=== PATIENT | female | born 1990 | race Caucasian/White ===

== ENCOUNTER 2016-05-04 08:34 | Emergency (ER) | payer OTHER ==
--- NOTE | 2016-05-04 09:44 | ED ---
Fall HPI - General Chief Complaint: Fall Stated Complaint: fall Time Seen by Provider: 05/04/16 09:32 Source: patient, RN notes reviewed Mode of arrival: ambulatory - History of Present Illness Initial Comments: 25-year-old female who is currently with last menstrual cycle and the beginning of February presents to the emergency department with chief complaint of fall. Patient states that she was walking down the stairs she tripped her feet when up and she landed on her back in her arms. Patient states she is just having some bilateral diffuse arm pain and some back pain. Patient states she did notice some abdominal pain as well as if she was concerned. Patient states she has not seen her doctor yet in this her follow-up appointment as this coming week. Patient states she hasn't had a vaginal bleeding or discharge. Fall. Patient states her pain is minimal. Patient states does not really hurt to touch just feels sore on her arms and back. Patient states that her abdomen feels more tender in the left lower quadrant since the fall. Patient states that she has not had any other symptoms at this time. Patient states there is no lightheadedness or dizziness before the fall was a simple trip and fall.Patient denies any recent fever, chills, shortness of breath, chest pain, back pain, nausea vomiting, numbness or tingling, dysuria or hematuria, constipation or diarrhea, headaches or visual changes, or any other current symptoms. - Related Data Home Medications Medication Instructions Recorded Confirmed Acetaminophen Tab [Tylenol Tab] 1,000 mg PO Q6HR PRN 05/04/16 05/04/16 Allergies Allergy/AdvReac Type Severity Reaction Status Date / Time sulfamethoxazole Allergy Itching Verified 05/04/16 09:31 [From Bactrim] trimethoprim [From Bactrim] Allergy Itching Verified 05/04/16 09:31 hydrocodone bitartrate AdvReac Unknown Verified 05/04/16 09:31 [From Vicodin] Review of Systems ROS Statement: Those systems with pertinent positive or pertinent negative responses have been documented in the HPI. ROS Other: All systems not noted in ROS Statement are negative. Past Medical History Past Medical History: Asthma Additional Past Medical History / Comment(s): Obstetric history: She has had 2 previous normal vaginal deliveries. This is her third . She has had care with me since 8 weeks gestation. B+ abs neg, Rub Imm, RPR NR, Hrp B neg, HIV NR. Normal 1hr GTT, GBS neg. anemia History of Any Multi-Drug Resistant Organisms: None Reported Past Surgical History: No Surgical Hx Reported Past Anesthesia/Blood Transfusion Reactions: No Reported Reaction Past Psychological History: ADD/ADHD, Depression Smoking Status: Never smoker Past Alcohol Use History: None Reported Past Drug Use History: None Reported General Exam - General Exam Comments Initial Comments: General: The patient is awake and alert, in no distress, and does not appear acutely ill. Eye: Pupils are equal, round and reactive to light, extra-ocular movements are intact; there is normal conjunctiva bilaterally. No signs of icterus. Ears, nose, mouth and throat: There are moist mucous membranes and no oral lesions. Neck: The neck is supple, there is no tenderness. Cardiovascular: There is a regular rate and rhythm. No murmur, rub or gallop is appreciated. Respiratory: Lungs are clear to auscultation, respirations are non-labored, breath sounds are equal. No wheezes, stridor, rales, or rhonchi. Gastrointestinal: Soft, non-distended, mild tenderness in left lower quadrant of the abdomen without masses or organomegaly noted. There is no rebound or guarding present. No CVA tenderness. Bowel sounds are unremarkable. Back: There is no tenderness to palpation in the midline. There is no obvious deformity. No rashes noted. Musculoskeletal: Normal ROM, no tenderness, There is no pedal edema. There is no calf tenderness or swelling. Sensation intact. Pulses equal bilaterally 2+. Neurological: CN II-XII intact, There are no obvious motor or sensory deficits. Coordination appears grossly intact. Speech is normal. Skin: Skin is warm and dry and no rashes or lesions are noted. Psychiatric: Cooperative, appropriate mood & affect, normal judgment. Limitations: no limitations Course Vital Signs 05/04/16 08:51 Temperature 98.7 F Pulse Rate 99 Respiratory 18 Rate Blood Pressure 117/63 O2 Sat by Pulse 98 Oximetry Medical Decision Making - Medical Decision Making 25-year-old female presents to the emergency department with a chief complaint of fall. Patient is currently having some lower abdominal pain. Due to help the patient is in her we'll do an ultrasound to assess the baby's status. This time the patient's ultrasound was reviewed. She was informed that she does have a fluid collection. Chest. Playing with her doctor next week. We discussed follow-up for this. We did discuss at this time patient's fall does appear to cause some contusions to the elbows into the back. We discussed follow-up for this. We discussed Tylenol for pain control. Patient stated that she understood all the questions have been answered. She will be discharged home. - Radiology Data Radiology results: report reviewed, image reviewed Disposition Clinical Impression: Fall, Lumbar strain, Contusion of elbow, left, Contusion of right elbow Disposition: HOME SELF-CARE Condition: Stable Instructions: Contusion in Adults (ED) Additional Instructions: Please use medication as discussed. Please follow up with family doctor if symptoms have not improved over the next two days. Please return to the emergency room if your symptoms increase or worsen or for any other concerns. Follow-up with your [facility]. Referrals: Josie Hussein MD [STAFF PHYSICIAN] - 1-2 days Time of Disposition: 11:17
--- NOTE | 2016-05-04 11:06 | US ---
EXAMINATION TYPE: US OB <= 14 wk fetus DATE OF EXAM: 05/04/2016 10:37 AM COMPARISON: No previous CLINICAL HISTORY: Abdomen pain following fall down stairs, 4, para 3. EXAM PERFORMED: Transabdominal (TA) pelvic ultrasound. EXAM MEASUREMENTS: GESTATIONAL AGE / DATING Physician Established: Not established yet Dates by LMP: (11 weeks/0 days) EDC: 11/23/2016 Dates by First Scan: No previous Dates by Current Scan: (11 weeks/1 days) EDC: 11/22/2016 MATERNAL ANATOMY Uterus: 13.6 x 9.1 x 10.9cm Right Ovary: 2.4 x 1.4 x 1.4cm Left Ovary: 2.4 x 1.3 x 1.1cm Post CDS / Adnexa: wnl Presence of free fluid: no Presence of corpus luteal cyst: not seen at this time Presence of subchorionic bleed: 5.1 x 2.2 x 4.7cm complex cystic area inferior to gestational sac GESTATION / SURVEY CRL: 4.3cm (11 weeks/1 days) Yolk Sac (normal less than 6mm): not seen at this time Heart Rate: 173 bpm Rhythm: Normal IUP: Viable IUP Nuchal Translucency 10-14wks (normal less than 3mm): unable to obtain due to position Date of LMP: 02/17/16 Beta HcG (if available): Not available at time of exam TECHNOLOGIST IMPRESSION: Viable single IUP measuring 11 weeks 1 day with a heart rate of 173bpm and an estimated delivery date of 11/22/2016, 5.1 x 2.2 x 4.7cm complex cystic area inferior to gestation al sac Single live intrauterine gestation is confirmed as a pole and gestational sac are identified. Y olk sac is not clearly seen. heart tones are upper limits of normal. There is moderate to large size fluid collection felt to reflect subchorionic hematoma measured on image #33 along the posterio r aspect of fetus. No free fluid is seen in pelvic cul-de-sac. Both ovaries are identified. No suspicious extraovarian adnexal mass is seen. IMPRESSION: Single live intrauterine gestation is confirmed, mean crown-rump length is 4.3 cm corresponding to 11 week 1 day old fetus. Consider short-term ultrasound follow-up due to moderate to large sized fluid collection probable subchorionic hematoma.
[2016-05-04 11:27] VITALS: BP 101/50; PULSE 69; RESP 14; TEMP 98.4
== END 2016-05-04 11:29 | disposition home or self-care (01) ==
LOC: EC 08:34
DX: O26.891 Other specified pregnancy related conditions, first trimester (principal); S39.012A Strain of muscle, fascia and tendon of lower back, initial encounter; S50.02XA Contusion of left elbow, initial encounter; S50.01XA Contusion of right elbow, initial encounter; R10.32 Left lower quadrant pain; Z88.0 Allergy status to penicillin; Z88.5 Allergy status to narcotic agent; Z3A.11 11 weeks gestation of pregnancy; W18.09XA Striking against other object with subsequent fall, initial encounter
CPT/HCPCS: 76801; 99284

== ENCOUNTER → 2016-05-16 | Outpatient (CLI) | payer OTHER ==
[2016-05-16 18:18] LABS: CH 26.1; HCT 35.2 % (34.0-46.0); HDW 2.52; HGB 11.1 gm/dL (11.4-16.0); MCH 25.9 pg (25.0-35.0); MCHC 31.6 g/dL (31.0-37.0); Mean Platelet Volume 8.7; RDW 13.8 % (11.5-15.5); WBC 8.3 k/uL (3.8-10.6)
[2016-05-16 18:39] LABS: Glucose 69 mg/dL (74-99); Non-African American GFR(MDRD) >60 (>60 ml/min/1.73 sqM)
[2016-05-16 19:11] LABS: Hepatitis B Surface Ag Index 0.07
--- NOTE | 2016-05-17 13:47 | US ---
EXAMINATION TYPE: US OB <= 14 wk fetus DATE OF EXAM: 05/16/2016 5:47 PM COMPARISON: 05/04/2016 CLINICAL HISTORY: F/u Prev Abnormal Z36. Previous abnormal - subchorionic bleed EXAM PERFORMED: Transabdominal (TA) EXAM MEASUREMENTS: GESTATIONAL AGE / DATING Physician Established: (12 weeks/5 days) EDC: 11/23/2016 Dates by LMP: Patient unsure of LMP Dates by First Scan: (12 weeks/6 days) EDC: 11/22/2016 Dates by Current Scan for: (13 weeks/1 days) EDC: 11/20/2016 MATERNAL ANATOMY Uterus: 15.0 x 9.5 x 10.7cm Right Ovary: 3.0 x 2.0 x 1.8cm Left Ovary: 2.8 x 2.0 x 2.2cm Post CDS / Adnexa: wnl Presence of free fluid: no Presence of corpus luteal cyst: not seen at this time Presence of subchorionic bleed: 6.7 x 1.4 x 5.4cm complex area inferior to gestational sac, seen on p revious ultrasound, appears to have increased in size from previous ultrasound . GESTATION / SURVEY CRL: 6.8cm (13 weeks/1 days) Yolk Sac (normal less than 6mm): not seen at this time Heart Rate: 159 bpm Rhythm: Normal IUP: Viable IUP Nuchal Translucency 10-14wks (normal less than 3mm): 1.6mm Date of LMP: Patient unsure of LMP Beta HcG (if available): Not available at time of exam TECHNOLOGIST IMPRESSION: Viable single IUP measuring 13 weeks 1 day with a heart rate of 159bpm and an estimated delivery date of 11/20/2016, 6.7 x 1.4 x 5.4cm complex area inferior to gestational sac, seen on previous ultrasound, appears to have increased in size from previous ultrasound Subchorionic hemorrhage is becoming more echogenic over the interval. This may be maturing. IMPRESSION: 1. Increasing size subchorionic hemorrhage currently measuring 6.7 x 1.4 x 5.4 cm. 2. Single intrauterine gestation estimated at 13 weeks 1 day gestation. Cardiac activity measures 159 bpm.
[2016-05-18 07:05] LABS: HIV-1/HIV-2 Ab Screen NONREAC (NON REAC)
== END | disposition home or self-care (01) ==
LOC: RADUSMAIN 17:25
PROVIDERS: ATTEND Obstetrics & Gynecology
DX: O46.8X1 Other antepartum hemorrhage, first trimester (principal); Z3A.13 13 weeks gestation of pregnancy
CPT/HCPCS: 76801; 76813; 82565; 82947; 85027; 86762; 86780; 86850; 86900; 86901; 87340; 87389

== ENCOUNTER 2016-06-04 17:28 | Emergency (ER) | payer OTHER ==
[2016-06-04 17:39] VITALS: TEMP 98.6
[2016-06-04] MEDS ORDERED: SODIUM CHLORIDE 0.9% 500 ML IV STA (18:12)
[2016-06-04] MEDS ORDERED: SODIUM CHLORIDE 0.9% 1,000 ML IV STA (18:12)
[2016-06-04] MEDS ORDERED: ACETAMINOPHEN IV (For NPO) 500 MG in EMPTY BAG 1 BAG IVPB ONE (18:12)
[2016-06-04] MEDS ORDERED: ONDANSETRON 4 MG/2 ML VIAL IVP STA (18:12)
--- NOTE | 2016-06-04 18:21 | ED ---
General Adult HPI - General Chief complaint: Headache Stated complaint: HEADACHE, COUGHING X 2 WEEKS 15 WEEKS Time Seen by Provider: 06/04/16 17:41 Source: patient, family, RN notes reviewed, old records reviewed Mode of arrival: ambulatory Limitations: no limitations - History of Present Illness Initial comments: Chief complaint history of present illness a 25-year-old female who is approximately 15 weeks . States she had a cough cough hard enough to cause vomiting. She has chronic migraine headaches. Complains of headache. No blood in the vomit no diarrhea. No fever. No stiff neck. - Related Data Home Medications Medication Instructions Recorded Confirmed Acetaminophen Tab [Tylenol Tab] 1,000 mg PO Q6HR PRN 05/04/16 05/04/16 Previous Rx's Medication Instructions Recorded Metoclopramide HCl [Reglan] 5 mg PO TID PRN #10 tablet 06/04/16 Allergies Allergy/AdvReac Type Severity Reaction Status Date / Time sulfamethoxazole Allergy Itching Verified 06/04/16 17:36 [From Bactrim] trimethoprim [From Bactrim] Allergy Itching Verified 06/04/16 17:36 hydrocodone bitartrate AdvReac Unknown Verified 06/04/16 17:36 [From Vicodin] Review of Systems ROS Statement: Those systems with pertinent positive or pertinent negative responses have been documented in the HPI. Review of systems. Patient has a headache does not appear to be uncomfortable. Reports when she coughs is green in color. Denies any visual acuity changes denies sore throat no chest pain denies shortness of breath and coughing causes to vomit several times. The patient is 15 weeks she sees an [employer]. All systems otherwise reviewed. Past medical problems significant for 4 para 3. Recently the patient had an ultrasound, 18 days ago which at that time and was done because she slipped and fell down her stairs. The ultrasound at that time was increasing size subchorionic hemorrhage currently measuring 6.7 x 1.4 x 5.4 cm. At that time she had a single intrauterine gestation estimated 13 weeks 1 day cardiac activity was 159. That was read by Dr. Jesus Manuel cassidy. Since that time patient has not had any cramps pain or bleeding. Past medical processing significant for asthma. Surgeries none. Family history mother cervical cancer great aunt had breast cancer. Patient has ALLERGIES to sulfa and hydrocodone. Nonsmoker nondrinker. ROS Other: All systems not noted in ROS Statement are negative. Past Medical History Past Medical History: Asthma Additional Past Medical History / Comment(s): Obstetric history: She has had 2 previous normal vaginal deliveries. This is her third . She has had care with me since 8 weeks gestation. B+ abs neg, Rub Imm, RPR NR, Hrp B neg, HIV NR. Normal 1hr GTT, GBS neg. anemia History of Any Multi-Drug Resistant Organisms: None Reported Past Surgical History: No Surgical Hx Reported Past Anesthesia/Blood Transfusion Reactions: No Reported Reaction Past Psychological History: ADD/ADHD, Depression Smoking Status: Never smoker Past Alcohol Use History: None Reported Past Drug Use History: None Reported General Exam - General Exam Comments Initial Comments: General: The patient is awake and alert, in no distress, and does not appear acutely ill. Here because she has a headache, complains of chronic migraine type headaches. She has not taken Tylenol for it at home. Also coughing and vomiting several times. Vital signs show temperature 98.6 pulse 133 respiratory rate 20 Eye: Pupils are equal, round and reactive to light, extra-ocular movements are intact ; there is normal conjunctiva bilaterally. No signs of icterus. Ears, nose, mouth and throat: There are moist mucous membranes and no oral lesions. Neck: The neck is supple, there is no tenderness , no anterior cervical lymphadenopathy, no stiff neck. Cardiovascular: Tachycardic heart rate, 133.. No murmur, rub or gallop is appreciated. Respiratory: Lungs are clear to auscultation, respirations are non-labored, breath sounds are equal. No wheezes, stridor, rales, or rhonchi. Gastrointestinal: Soft, non-distended, non-tender abdomen without masses or organomegaly noted. There is no rebound or guarding present. No CVA tenderness. Bowel sounds are unremarkable. Patient is 15 weeks . Back: There is no tenderness to palpation in the midline. There is no obvious deformity. No rashes noted. Musculoskeletal: Normal ROM, no tenderness, There is no pedal edema. There is no calf tenderness or swelling. Sensation intact. Pulses equal bilaterally 2+. Neurological: No neuro deficits. No meningismus. Skin: Skin is warm and dry and no rashes or lesions are noted. Limitations: no limitations Course Vital Signs 06/04/16 17:36 Temperature 98.6 F Pulse Rate 133 H Respiratory 20 Rate Blood Pressure 98/68 O2 Sat by Pulse 97 Oximetry Medical Decision Making - Medical Decision Making Patient asked for food. Feeling better no nausea no vomiting this time. Headache gone. Labs show white count of 5.8 hemoglobin 10 hematocrit 32 with a potassium 4.2 BUN 61 creatinine 0.6 with a GFR greater than 60. Lab determined glucose only 63. Patient did eat is feeling better. Patient is not taking any hypoglycemics does not have history of problems with blood sugar. The patient be discharged home with Reglan to be taken by mouth as needed for nausea vomiting. She's to call follow-up with family physician and [facility] or return emergency room as needed - Lab Data Result diagrams: 06/04/16 18:40 06/04/16 18:40 Lab Results 06/04/16 06/04/16 Range/Units 18:40 18:40 WBC 5.8 (3.8-10.6) k/uL RBC 4.03 (3.80-5.40) m/uL Hgb 10.4 L (11.4-16.0) gm/dL Hct 32.5 L (34.0-46.0) % MCV 80.6 (80.0-100.0) fL MCH 25.9 (25.0-35.0) pg MCHC 32.2 (31.0-37.0) g/dL RDW 13.9 (11.5-15.5) % Plt Count 145 L (150-450) k/uL Neutrophils % 80 % Lymphocytes % 8 % Monocytes % 7 % Eosinophils % 3 % Basophils % 1 % Neutrophils # 4.6 (1.3-7.7) k/uL Lymphocytes # 0.5 L (1.0-4.8) k/uL Monocytes # 0.4 (0-1.0) k/uL Eosinophils # 0.2 (0-0.7) k/uL Basophils # 0.0 (0-0.2) k/uL Sodium 135 L (137-145) mmol/L Potassium 4.2 (3.5-5.1) mmol/L Chloride 104 (98-107) mmol/L Carbon Dioxide 22 (22-30) mmol/L Anion Gap 9 mmol/L BUN 6 L (7-17) mg/dL Creatinine 0.60 (0.52-1.04) mg/dL Est GFR (MDRD) Af Amer >60 (>60 ml/min/1.73 sqM) Est GFR (MDRD) Non-Af >60 (>60 ml/min/1.73 sqM) Glucose 63 L (74-99) mg/dL Calcium 9.0 (8.4-10.2) mg/dL Total Bilirubin 0.3 (0.2-1.3) mg/dL AST 23 (14-36) U/L ALT 28 (9-52) U/L Alkaline Phosphatase 56 (38-126) U/L Total Protein 6.6 (6.3-8.2) g/dL Albumin 3.4 L (3.5-5.0) g/dL Disposition Clinical Impression: Nausea/vomiting in Disposition: HOME SELF-CARE Condition: Fair Instructions: Nausea and Vomiting in (ED) Additional Instructions: Follow-up with year old family physician follow-up [facility]. Take Reglan for nausea vomiting, for pain Prescriptions: Metoclopramide HCl [Reglan] 5 mg PO TID PRN #10 tablet PRN Reason: When necessary nausea vomiting Time of Disposition: 20:25
[2016-06-04 18:56] LABS: Basophils % (A) 1 %; CH 26.7; CHCM 33.4; Eosinophils # (A) 0.2 k/uL (0-0.7); Eosinophils % (A) 3 %; HCT 32.5 % (34.0-46.0); HDW 3.03; HGB 10.4 gm/dL (11.4-16.0); Luc # (Auto) 0.11; Luc % (Auto) 2; Lymphocytes # (A) 0.5 k/uL (1.0-4.8); Lymphocytes % (A) 8 %; MCH 25.9 pg (25.0-35.0); MCHC 32.2 g/dL (31.0-37.0); MCV 80.6 fL (80.0-100.0); Mean Platelet Volume 8.5; Monocytes # (A) 0.4 k/uL (0-1.0); Monocytes % (A) 7 %; Neutrophils # (A) 4.6 k/uL (1.3-7.7); Neutrophils % (A) 80 %; RBC 4.03 m/uL (3.80-5.40); RDW 13.9 % (11.5-15.5); WBC 5.8 k/uL (3.8-10.6); WBC (Perox) 5.66
[2016-06-04 19:04] LABS: ALT 28 U/L (9-52); AST 23 U/L (14-36); Alkaline Phosphatase 56 U/L (38-126); Anion Gap 9 mmol/L; Blood Urea Nitrogen 6 mg/dL (7-17); Carbon Dioxide 22 mmol/L (22-30); Chloride 104 mmol/L (98-107); Glucose 63 mg/dL (74-99); Non-African American GFR(MDRD) >60 (>60 ml/min/1.73 sqM); Potassium 4.2 mmol/L (3.5-5.1); Sodium 135 mmol/L (137-145); Total Bilirubin 0.3 mg/dL (0.2-1.3); Total Protein 6.6 g/dL (6.3-8.2)
[2016-06-04 20:39] VITALS: BP 101/56; PULSE 77; RESP 18
== END 2016-06-04 20:43 | disposition home or self-care (01) ==
LOC: EC 17:28
DX: O26.892 Other specified pregnancy related conditions, second trimester (principal); R51 Headache; R05 Cough; R11.2 Nausea with vomiting, unspecified; Z88.1 Allergy status to other antibiotic agents; Z88.2 Allergy status to sulfonamides; Z88.6 Allergy status to analgesic agent; Z3A.15 15 weeks gestation of pregnancy; Z80.3 Family history of malignant neoplasm of breast; Z80.49 Family history of malignant neoplasm of other genital organs
CPT/HCPCS: 36415; 80053; 85025; 99284; 96374; 96375; 96361 ×2; J2405; J0131

== ENCOUNTER → 2016-06-21 | Outpatient (CLI) | payer OTHER | END | disposition home or self-care (01) | LOC: LABWHC1 13:44 | PROVIDERS: ATTEND Obstetrics & Gynecology | DX: Z34.82 Encounter for supervision of other normal pregnancy, second trimester (principal); Z3A.00 Weeks of gestation of pregnancy not specified | CPT/HCPCS: 36415; 82105; 82677; 84702; 86336 ==

== ENCOUNTER 2016-06-25 21:37 | Emergency (ER) | payer OTHER ==
[2016-06-25 21:42] VITALS: BP 103/58; PULSE 80; RESP 16; TEMP 98.4
[2016-06-25 23:42] LABS: Appearance,Urine Clear (Clear); Bacteria,Urine Rare /hpf; Bilirubin,Urine Negative (Negative); Glucose,Urine (UA) Negative (Negative); Ketones,Urine Negative (Negative); Leukocyte Esterase,Urine Large (Negative); Nitrite,Urine Negative (Negative); Particle Count 3189; Protein,Urine Trace (Negative); RBC,Urine 1 /hpf (0-5); Specific Gravity,Urine 1.015 (1.001-1.035); Squamous Epithelial Cell,Urine 7 /hpf (0-4); UA Billing (MACRO vs. MICRO) MICRO; Urobilinogen,Urine <2.0 mg/dL (<2.0); WBC,Urine 26 /hpf (0-5)
--- NOTE | 2016-06-26 00:07 | ED ---
Abdominal Pain HPI - General Chief Complaint: Abdominal Pain Stated Complaint: abdominal pain; blood in eye Time Seen by Provider: 06/25/16 22:19 Source: patient Mode of arrival: ambulatory Limitations: no limitations - History of Present Illness Initial Comments: Patient is a 29-year-old female at 18 weeks presenting with diffuse abdominal pain and right eye subconjunctival hemorrhage. Patient states pain has been been going on for the past week and diffuse in nature. Patient's been trying Tylenol without relief. Patient denies fever, nausea, vomiting, diarrhea , dysuria. Patient denies vaginal bleeding or discharge. Patient states 2 days ago she noticed her right eye had a subconjunctival hemorrhage. Patient denies concern now or in the past for STDs. Patient states she was recently checked and negative for STDs. Patient not concerned about significant other and possibility of STDs with him. - Related Data Previous Rx's Medication Instructions Recorded Nitrofurantoin Monohyd/M-Cryst 100 mg PO Q12HR #14 cap 06/26/16 [Macrobid] Allergies Allergy/AdvReac Type Severity Reaction Status Date / Time sulfamethoxazole Allergy Itching Verified 06/25/16 21:42 [From Bactrim] trimethoprim [From Bactrim] Allergy Itching Verified 06/25/16 21:42 hydrocodone bitartrate AdvReac Unknown Verified 06/25/16 21:42 [From Vicodin] Review of Systems ROS Statement: Those systems with pertinent positive or pertinent negative responses have been documented in the HPI. Constitutional: No fever and no chills. HENT: No congestion, no rhinorrhea and no sore throat. Eyes: No discharge and no redness. Respiratory: No cough and no shortness of breath. Cardiovascular: No chest pain and no palpitations. Gastrointestinal: No nausea, no vomiting, +abdominal pain and no diarrhea. Genitourinary: No dysuria and no hematuria. No vaginal bleeding or discharge. Musculoskeletal: No back pain and no arthralgias. Skin: No pallor and no rash. Neurological: No dizziness and No headaches. ROS Other: All systems not noted in ROS Statement are negative. Past Medical History Past Medical History: Asthma Additional Past Medical History / Comment(s): Obstetric history: She has had 2 previous normal vaginal deliveries. This is her third . She has had care with me since 8 weeks gestation. B+ abs neg, Rub Imm, RPR NR, Hrp B neg, HIV NR. Normal 1hr GTT, GBS neg. anemia History of Any Multi-Drug Resistant Organisms: None Reported Past Surgical History: No Surgical Hx Reported Past Anesthesia/Blood Transfusion Reactions: No Reported Reaction Past Psychological History: ADD/ADHD, Depression Smoking Status: Never smoker Past Alcohol Use History: None Reported Past Drug Use History: None Reported General Exam - General Exam Comments Initial Comments: Constitutional: Patient appears well-developed and well-nourished. No distress. Head: Normocephalic and atraumatic. Eyes: Conjunctivae and EOM are normal. Right eye exhibits no discharge. Left eye exhibits no discharge. No scleral icterus. Neck: Normal range of motion. Neck supple. Cardiovascular: Normal rate and regular rhythm. No murmur heard. Pulmonary/Chest: Effort normal and breath sounds normal. No respiratory distress. No wheezes. Abdominal: Soft. No distension. There is no tenderness. There is no rebound and no guarding. Musculoskeletal: Normal range of motion. No edema or tenderness. Neurological: Patient alert and oriented to person, place, and time. Skin: Skin is warm and dry. Not diaphoretic. Nursing notes and vitals reviewed. Genitourinary: Patient refusing pelvic examination as she states she is on pelvic rest. Educated patient on risk, benefits and alternatives. RN present and patient refusing pelvic exam. Limitations: no limitations Course Vital Signs 06/25/16 21:40 Temperature 98.4 F Pulse Rate 80 Respiratory 16 Rate Blood Pressure 103/58 O2 Sat by Pulse 99 Oximetry - Reevaluation(s) Reevaluation #1: 06/26/16 00:07 OB nurse came down and got heart tones in the 150s. Medical Decision Making - Medical Decision Making Patient's a 25-year-old at 18 weeks presenting with diffuse abdominal pain found to have a urinary tract infection. Abdomen soft and nonspecific tenderness including no tenderness in the right lower quadrant. Ultrasound done 05/16/2016 showing a single IUP with subchorionic hemorrhage. Patient refusing pelvic exam to address further concerns of possible PID, gonorrhea or chlamydia. Prior to discharge, patient was resting comfortably in bed. Course of stay improved. Abdomen soft nontender. Denies pain. Discussed physical exam and diagnostic tests with patient. Questions answered and patient is agreeable to discharge with close follow up with Primary Care Physician. Instructed to return to Emergency Department if symptoms worsen. - Lab Data Lab Results 06/25/16 Range/Units 23:00 Urine Color Yellow Urine Appearance Clear (Clear) Urine pH 8.0 (5.0-8.0) Ur Specific [place] 1.015 (1.001-1.035) Urine Protein Trace H (Negative) Urine Glucose (UA) Negative (Negative) Urine Ketones Negative (Negative) Urine Blood Negative (Negative) Urine Nitrate Negative (Negative) Urine Bilirubin Negative (Negative) Urine Urobilinogen <2.0 (<2.0) mg/dL Ur Leukocyte Esterase Large H (Negative) Urine RBC 1 (0-5) /hpf Urine WBC 26 H (0-5) /hpf Urine WBC Clumps Rare H (None) /hpf Ur Squamous Epith Cells 7 H (0-4) /hpf Urine Bacteria Rare H (None) /hpf Disposition Clinical Impression: Subconjunctival hemorrhage of right eye, Abdominal pain during , Urinary tract infection during Disposition: HOME SELF-CARE Condition: Good Instructions: Abdominal Pain in (ED), Subconjunctival Hemorrhage (ED ), Urinary Tract Infection in (ED) Prescriptions: Nitrofurantoin Monohyd/M-Cryst [Macrobid] 100 mg PO Q12HR #14 cap Referrals: None,Stated [Primary Care Provider] - 1-2 days Liane Nieves DO [Doctor of Osteopathic Medicine] - 1-2 days
== END 2016-06-26 01:01 | disposition home or self-care (01) ==
LOC: EC 21:37
DX: O23.42 Unspecified infection of urinary tract in pregnancy, second trimester (principal); H11.31 Conjunctival hemorrhage, right eye; Z3A.18 18 weeks gestation of pregnancy; Z88.2 Allergy status to sulfonamides; Z88.5 Allergy status to narcotic agent
CPT/HCPCS: 81001; 87086; 99284

== ENCOUNTER → 2016-06-28 | Outpatient (CLI) | payer OTHER ==
--- NOTE | 2016-06-29 07:32 | US ---
EXAMINATION TYPE: US OB anatomy transabd DATE OF EXAM: 06/28/2016 2:27 PM COMPARISON: 05/16/2016 HISTORY: Anatomy TECHNIQUE: Transabdominal (TA) EXAM MEASUREMENTS: GESTATIONAL AGE / DATING Physician Established: (18 weeks/6 days) EDC: 02/16/2017 Dates by Current Scan for: (18 weeks/6 days) EDC: 02/16/2017 SURVEY IUP: Single PLACENTA: Posterior PREVIA: No previa WILMER: 10.8 cm Normal CERVICAL LENGTH (transabdominal: norm > 3.0cm): 3.3 cm BIOMETRY PRESENTATION: Vertex LIE: Longitudinal BPD: 4.5 cm 19 weeks / 5 days HC: 16.5 cm 19 weeks / 2 days AC: 12.9 cm 18 weeks / 4 days FL: 2.5 cm 17 weeks / 4 days ESTIMATED WEIGHT IN GRAMS: 228 grams ESTIMATED WEIGHT IN LBS/OZS: 0 lbs. 8 oz. WEIGHT PERCENTAGE BASED ON ESTABLISHED DATE: 14 % HC/AC: Normal FL/AC: Normal HEART RATE: 153 bpm RHYTHM: Normal ANATOMY SEEN (within normal limits): * Lateral Vent (< 1 cm) 0.7 cm * Cisterna Magna (< 1.1 cm) 0.5 cm * Nuchal Fold (< 0.6 cm) 0.3 cm * Cerebellum (varies with age) 1.8 cm Choroid Plexus (bilateral) Midline Falx Cavus Septi Pellucidi Four Chamber Heart Outflow tracts: LVOT/RVOT Stomach Situs Nose / Lips Diaphragm Kidneys (bilateral) Bladder Cord Insert Three Vessel Cord Longitudinal Spine Transverse Spine Arms (bilateral) Legs (bilateral) ANATOMY SEEN (does not appear within normal limits): ANATOMY NOT SEEN: IMPRESSION: 1. Viable IUP measuring 18 weeks 6 days. Previous subchorionic hemorrhage not seen. [place] .
== END | disposition home or self-care (01) ==
LOC: RADUSWWP 13:36
PROVIDERS: ATTEND Obstetrics & Gynecology
DX: O36.62X0 Maternal care for excessive fetal growth, second trimester, not applicable or unspecified (principal); Z88.8 Allergy status to other drugs, medicaments and biological substances; Z3A.18 18 weeks gestation of pregnancy
CPT/HCPCS: 76811

== ENCOUNTER → 2016-08-22 | Outpatient (CLI) | payer OTHER ==
[2016-08-22 17:06] LABS: CH 22.8; CHCM 29.3; HDW 3.51; HGB 8.3 gm/dL (11.4-16.0); Hypochromasia Marked; MCH 23.2 pg (25.0-35.0); MCHC 29.8 g/dL (31.0-37.0); MCV 78.1 fL (80.0-100.0); Mean Platelet Volume 8.6; Poikilocytosis Slight; RBC 3.59 m/uL (3.80-5.40); RDW 14.3 % (11.5-15.5); WBC 7.2 k/uL (3.8-10.6)
== END | disposition home or self-care (01) ==
LOC: LABWHC1 15:38
PROVIDERS: ATTEND Obstetrics & Gynecology
DX: Z34.92 Encounter for supervision of normal pregnancy, unspecified, second trimester (principal); Z3A.00 Weeks of gestation of pregnancy not specified
CPT/HCPCS: 36415; 82950; 85027

== ENCOUNTER → 2016-09-06 | Outpatient (CLI) | payer OTHER | END | disposition home or self-care (01) | LOC: LABWHC1 07:39 | PROVIDERS: ATTEND Obstetrics & Gynecology | DX: O24.419 Gestational diabetes mellitus in pregnancy, unspecified control (principal); Z3A.00 Weeks of gestation of pregnancy not specified | CPT/HCPCS: 36415; 82947; 82951; 82952 ==

== ENCOUNTER → 2016-09-15 | Outpatient (CLI) | payer OTHER ==
[2016-09-15 11:38] LABS: Glucose 3 Hour, Gest 140 mg/dL
== END | disposition home or self-care (01) ==
LOC: LABWHC1 07:08
PROVIDERS: ATTEND Obstetrics & Gynecology
DX: O24.419 Gestational diabetes mellitus in pregnancy, unspecified control (principal); Z3A.00 Weeks of gestation of pregnancy not specified
CPT/HCPCS: 36415; 82951; 82952

== ENCOUNTER 2016-11-05 11:33 | Inpatient (IN) | payer OTHER ==
[2016-11-05] MEDS ORDERED: TERBUTALINE 1 MG/ML VIAL SQ PRN (12:04)
[2016-11-05] MEDS ORDERED: METHYLERGONOVINE 0.2 MG/ML 1 ML AMP IM PRN (12:04)
[2016-11-05] MEDS ORDERED: OXYTOCIN 10 UNIT/ML 1 ML VIAL IM PRN (12:04)
[2016-11-05] MEDS ORDERED: AMPICILLIN 2,000 MG in SODIUM CHLORIDE 0.9% 100 ML IVPB STA (12:04)
[2016-11-05] MEDS ORDERED: LIDOCAINE 1% (PF) 10 MG/ML (30 ML SDV) SQ PRN (12:04)
[2016-11-05] MEDS ORDERED: CARBOPROST TROMETHAMINE 250 MCG/ML 1 ML AMP IM PRN (12:04)
[2016-11-05] MEDS ORDERED: LACTATED RINGERS 1,000 ML IV SCH (12:15)
[2016-11-05] MEDS ORDERED: BUTORPHANOL 1 MG/ML 1 ML VIAL IV PRN (12:43)
--- NOTE | 2016-11-05 12:50 | P.HPOB ---
History of Present Illness H&P Date: 11/05/16 Chief Complaint: Contractions. This patient is a 26-year-old 4 para 3 female estimated date of confinement 11/23/2016 estimated gestational age 37-3/7 weeks gestation who is admitted to labor and delivery for complaints of contraction. Patient's care is per Dr. Nieves appears to be complicated by gestational diabetes. She has been followed by maternal medicine but patient has had some issues getting there due to transportation. Patient's had a positive group B strep culture. Review of Systems Constitutional: Denies chills, Denies fever Ears, nose, mouth and throat: Denies headache, Denies sore throat Cardiovascular: Denies chest pain, Denies shortness of breath Respiratory: Denies cough Gastrointestinal: Reports heartburn Genitourinary: Reports Menstruation: Reports amenorrhea Musculoskeletal: Denies myalgias Past Medical History Past Medical History: Asthma Additional Past Medical History / Comment(s): 3 previous vaginal deliveries. History of Any Multi-Drug Resistant Organisms: None Reported Past Surgical History: No Surgical Hx Reported Past Anesthesia/Blood Transfusion Reactions: No Reported Reaction Past Psychological History: ADD/ADHD, Depression Smoking Status: Never smoker Past Alcohol Use History: None Reported Past Drug Use History: None Reported Medications and Allergies Home Medications Medication Instructions Recorded Confirmed Type Acetaminophen [Tylenol] 325 mg PO Q4H 11/05/16 11/05/16 History Albuterol Inhaler [Ventolin Hfa 1 - 2 puff INHALATION Q6HR PRN 11/05/16 History Inhaler] Allergies Allergy/AdvReac Type Severity Reaction Status Date / Time sulfamethoxazole Allergy Itching Verified 06/25/16 21:42 [From Bactrim] trimethoprim [From Bactrim] Allergy Itching Verified 06/25/16 21:42 hydrocodone bitartrate AdvReac Unknown Verified 06/25/16 21:42 [From Vicodin] Exam - Vital Signs Vital signs: Intake and Output 11/04/16 11/05/16 11/05/16 22:59 06:59 14:59 Other: Weight 53.07 kg Patient Weight 11/06/16 06:59 Weight 53.07 kg - OBG Physical Exam Abdomen: bowel sounds normal, no diffuse tenderness, no bruit present, no guarding noted, no hepatomegaly, no splenomegaly, no mass Vulva: both: normal Vagina: normal moisture, no discharge Cervix: no lesion (Patient is 8 cm dilated completely effaced -2 station), no discharge Uterus: enlarged (Fundal height consistent with a term ) Results blood work shows she is B positive, rubella immune, RPR nonreactive, hepatitis B negative, group B strep was normal. Assessment and Plan (1) Normal labor Narrative/Plan: This patient is a 26-year-old 4 para 3 female 37-3/7 weeks' gestation in active labor. Patient is a positive group B strep culture therefore will treat prophylactically with antibiotics. Patient apparently has a history of a custody issues with previous children and therefore will have a social service agency director consult. Status: Acute (2) Gestational diabetes Status: Acute (3) Group B streptococcal carriage complicating Status: Acute
[2016-11-05 13:33] LABS: Anisocytosis Slight; Basophils % (A) 0 %; CH 18.8; CHCM 27.7; Eosinophils # (A) 0.2 k/uL (0-0.7); Eosinophils % (A) 2 %; HCT 27.3 % (34.0-46.0); HDW 3.93; HGB 7.6 gm/dL (11.4-16.0); Hypochromasia Marked; Luc # (Auto) 0.12; Luc % (Auto) 2; Lymphocytes # (A) 1.5 k/uL (1.0-4.8); Lymphocytes % (A) 21 %; MCH 19.1 pg (25.0-35.0); MCV 68.1 fL (80.0-100.0); Mean Platelet Volume 8.2; Microcytosis Marked; Monocytes # (A) 0.3 k/uL (0-1.0); Monocytes % (A) 5 %; Neutrophils # (A) 5.2 k/uL (1.3-7.7); Neutrophils % (A) 71 %; Poikilocytosis Slight; RBC 4.01 m/uL (3.80-5.40); RDW 17.2 % (11.5-15.5); WBC 7.3 k/uL (3.8-10.6); WBC (Perox) 7.65
[2016-11-05] MEDS ORDERED: LANOLIN CREAM 5 GM TUBE TOPICAL PRN (14:00)
[2016-11-05] MEDS ORDERED: diphenhydrAMINE 50 MG/ML 1 ML VIAL IVP PRN (14:00)
[2016-11-05] MEDS ORDERED: OXYTOCIN 20 UNITS/1000 ML NS 1,000 ML IV SCH (14:00)
[2016-11-05] MEDS ORDERED: WITCH HAZEL 1 EACH MED..PAD TOPICAL PRN (14:00)
[2016-11-05] MEDS ORDERED: BENZOCAINE/MENTHOL SPRAY 1 GM/SPRAY AEROSOL TOPICAL PRN (14:00)
[2016-11-05] MEDS ORDERED: ZOLPIDEM 5 MG TAB PO PRN (14:00)
[2016-11-05] MEDS ORDERED: ACETAMINOPHEN TAB 325 MG TAB PO PRN (14:00)
[2016-11-05] MEDS ORDERED: HYDROCORTISONE 2.5% RECTAL CREAM 30 GM TUBE RECTAL PRN (14:00)
[2016-11-05] MEDS ORDERED: diphenhydrAMINE 25 MG CAP PO PRN (14:00)
[2016-11-05] MEDS ORDERED: SIMETHICONE 80 MG CHEWABLE PO PRN (14:00)
[2016-11-05] MEDS ORDERED: BISACODYL 10 MG SUPP RECTAL PRN (14:00)
[2016-11-05] MEDS: Acetaminophen-Codeine 300-30mg TAB PO PRN ×2 (14:10→23:44)
--- NOTE | 2016-11-05 14:15 | P.PROBDLV ---
Vaginal Delivery Note - . Vaginal Delivery Note: Normal spontaneous vaginal delivery viable male infant Apgars 8 and 9 delivery time is 1324 hrs. Please see dictated H&P for intimate details of this patient's admission. In summary this is a 26-year-old 4 para 3 female 37-3/7 weeks gestation who is admitted to labor and delivery with active labor. Patient has artificial rupture membranes at 8 cm dilated for clear fluid. She does receive 1 dose of intrapartum Stadol for pain control. Patient's labor progresses very quickly and she gets to complete. Patient pushes the head to the perineum and the posterior perineum was supported. Patient unfortunately continues to push and delivers the anterior and posterior shoulder and rest this infant's body uncontrollably. She has a double nuchal cord which is then reduced. He umbilical cord was then doubly clamped and cut laid on the mother' s abdomen. This is a viable male infant Apgars 8 and 9 delivery time was 1324 hrs. The placenta is then spontaneously delivered intact. Inspection of the perineum shows a first-degree perineal laceration. Patient is known have atony at this time and uterine massage shows a large gush of blood and estimated blood loss is approximately 400 mL. She does firm up with IV Pitocin. The first-degree laceration is then repaired with 3-0 Vicryl usual fashion in good reapproximation is noted. and mother are stable in delivery room. There are no complications. All counts are correct 3. Of note the patient's admission hemoglobin is found to be 7.6. I discussed this with the patient she says that she has been anemic "since 2010". She states that she has not been taking any iron. At this point the patient's vital signs are stable and her bleeding is normal however she did have a significant blood loss at the time of delivery. For this reason I'll give her Methergine for at least 12 or 24 hours and begin chromogen. Patient understands that if her CBC shows her to be severely anemic or symptomatic then I would proceed with blood transfusion.
[2016-11-05] MEDS: METHYLERGONOVINE 0.2 MG TAB PO SCH ×2 (15:05→21:51)
[2016-11-05] MEDS: IRON AG/C/B12/CA/SUC.ACID/STOM 1 EACH TAB PO SCH (15:05)
[2016-11-05] MEDS ORDERED: AMPICILLIN 1,000 MG in SODIUM CHLORIDE 0.9% 50 ML IVPB SCH (17:00)
[2016-11-05] MEDS: SENNOSIDES-DOCUSATE SODIUM 1 EACH TAB PO SCH ×2 (19:48→20:00)
[2016-11-05] MEDS: IBUPROFEN 600 MG TAB PO PRN (21:53)
[2016-11-06] MEDS: IBUPROFEN 600 MG TAB PO PRN ×3 (03:54→23:01)
[2016-11-06 05:54] LABS: Anisocytosis Slight; Basophils % (A) 0 %; CH 18.9; CHCM 27.6; Eosinophils # (A) 0.1 k/uL (0-0.7); Eosinophils % (A) 0 %; HCT 25.4 % (34.0-46.0); HDW 3.83; HGB 7.1 gm/dL (11.4-16.0); Hypochromasia Marked; Luc # (Auto) 0.16; Luc % (Auto) 1; Lymphocytes # (A) 1.7 k/uL (1.0-4.8); Lymphocytes % (A) 13 %; MCH 19.1 pg (25.0-35.0); MCHC 27.9 g/dL (31.0-37.0); MCV 68.6 fL (80.0-100.0); Mean Platelet Volume 8.8; Microcytosis Marked; Monocytes # (A) 0.5 k/uL (0-1.0); Monocytes % (A) 4 %; Neutrophils # (A) 10.7 k/uL (1.3-7.7); Neutrophils % (A) 82 %; Poikilocytosis Slight; RBC 3.71 m/uL (3.80-5.40); RDW 17.2 % (11.5-15.5); WBC 13.1 k/uL (3.8-10.6); WBC (Perox) 13.12
--- NOTE | 2016-11-06 06:48 | P.PNOBGVD ---
Subjective - Subjective Patient reports: Reports appetite normal, Reports voiding normally, Reports pain well controlled, Reports ambulating normally : doing well Objective - Latest Vital Signs Latest vital signs: Vital Signs Temp Pulse Resp BP Pulse Ox 11/06/16 03:57 97.6 F 63 16 102/71 11/05/16 23:47 98.1 F 46 L 16 93/61 100 11/05/16 19:40 98.3 F 53 L 16 122/65 98 11/05/16 15:50 60 18 107/63 11/05/16 15:20 57 L 18 108/66 11/05/16 14:50 60 18 108/68 11/05/16 14:35 62 18 108/68 11/05/16 14:20 56 L 20 97/64 11/05/16 14:05 84 18 103/63 11/05/16 13:50 97.9 F 57 L 20 120/59 Intake and Output 11/05/16 11/05/16 11/06/16 14:59 22:59 06:59 Intake Total 1000 Balance 1000 Intake: IV 1000 Lactated Ringers 1,000 ml 1000 @ 125 mls/hr IV .Q8H [facility] Rx#:[id number] Other: # Voids 1 1 Weight 53.07 kg Patient Weight 11/06/16 06:59 Weight 53.07 kg - Exam Lungs: bilateral: normal Chest: Normal S1, Normal S2 Extremities: Present: normal Abdomen: Present: normal appearance, soft Uterus: Present: normal, firm - Labs Labs: Abnormal Lab Results - Last 24 Hours (Table) 11/05/16 11/06/16 Range/Units 12:25 05:33 WBC 13.1 H (3.8-10.6) k/uL RBC 3.71 L (3.80-5.40) m/uL Hgb 7.6 L 7.1 L (11.4-16.0) gm/dL Hct 27.3 L 25.4 L (34.0-46.0) % MCV 68.1 L 68.6 L (80.0-100.0) fL MCH 19.1 L 19.1 L (25.0-35.0) pg MCHC 28.0 L 27.9 L (31.0-37.0) g/dL RDW 17.2 H 17.2 H (11.5-15.5) % Plt Count 124 L 135 L (150-450) k/uL Neutrophils # 10.7 H (1.3-7.7) k/uL Assessment and Plan (1) Normal labor Narrative/Plan: day #1. Patient is resting without new complaints. Hemoglobin on admission was 7.6 and repeat this morning is 7.1. Patient is on Chromagen and for the most part asymptomatic. Vital signs are stable and she is afebrile. My impression this is a normal course with chronic anemia. Plan is to continue routine postoperative care and will be discharged home tomorrow. Current Visit: Yes Status: Acute Code(s): O80 - ENCOUNTER FOR FULL-TERM UNCOMPLICATED DELIVERY; Z37.9 - OUTCOME OF DELIVERY, UNSPECIFIED SNOMED Code(s ): 12776062 (2) Gestational diabetes Current Visit: Yes Status: Acute Code(s): O24.419 - GESTATIONAL DIABETES MELLITUS IN , UNSP CONTROL SNOMED Code(s): 78581328 (3) Group B streptococcal carriage complicating Current Visit: Yes Status: Acute Code(s): O99.820 - STREPTOCOCCUS B CARRIER STATE COMPLICATING SNOMED Code(s): 044736908229176 (4) Chronic anemia Current Visit: Yes Status: Acute Code(s): D64.9 - ANEMIA, UNSPECIFIED SNOMED Code(s): 982748815
[2016-11-06] MEDS: METHYLERGONOVINE 0.2 MG TAB PO SCH ×3 (09:54→21:47)
[2016-11-06] MEDS: IRON AG/C/B12/CA/SUC.ACID/STOM 1 EACH TAB PO SCH (09:55)
[2016-11-06] MEDS: SENNOSIDES-DOCUSATE SODIUM 1 EACH TAB PO SCH ×2 (09:56→19:36)
[2016-11-06] MEDS: Acetaminophen-Codeine 300-30mg TAB PO PRN ×2 (09:56→19:35)
[2016-11-07 00:17] VITALS: RESP 16
[2016-11-07] MEDS: Acetaminophen-Codeine 300-30mg TAB PO PRN ×4 (02:05→15:48)
[2016-11-07] MEDS: SENNOSIDES-DOCUSATE SODIUM 1 EACH TAB PO SCH ×2 (07:30→20:01)
[2016-11-07] MEDS: IRON AG/C/B12/CA/SUC.ACID/STOM 1 EACH TAB PO SCH (08:51)
[2016-11-07] MEDS: METHYLERGONOVINE 0.2 MG TAB PO SCH ×2 (08:51→19:58)
--- NOTE | 2016-11-07 09:08 | P.DS ---
Providers Date of admission: 11/05/16 11:54 Expected date of discharge: 11/07/16 Attending physician: Donny Dey Primary care physician: Stated None - Discharge Diagnosis(es) (1) Normal vaginal delivery Current Visit: No Status: Acute Hospital Course: 26-year-old presented in active labor and did have a normal vaginal delivery of a healthy male. Her course complicated by some uterine atony. Her hemoglobin was 7.6 upon admission and only drops to 7.1. She is asymptomatic. She was placed on Methergine and her uterine flow is minimal. She denies nausea, vomiting, chest pain, shortness of breath or calf pain. She's having some mild cramping controlled with Motrin and Tylenol 3. She'll be discharged home day #2 in stable condition to follow-up with me in 6 weeks. Plan - Discharge Summary New Discharge Prescriptions: New Acetaminophen-Codeine 300-30mg [Tylenol w/codeine #3] 2 each PO Q4HR PRN #30 tab PRN Reason: Moderate To Severe Pain Ibuprofen [Motrin] 600 mg PO Q6HR PRN #30 tab PRN Reason: Mild Pain Or Fever >= 100.5 No Action Acetaminophen [Tylenol] 325 mg PO Q4H Albuterol Inhaler [Ventolin Hfa Inhaler] 1 - 2 puff INHALATION Q6HR PRN PRN Reason: asthma Discharge Medication List Acetaminophen [Tylenol] 325 mg PO Q4H 11/05/16 [History] Albuterol Inhaler [Ventolin Hfa Inhaler] 1 - 2 puff INHALATION Q6HR PRN [History] Acetaminophen-Codeine 300-30mg [Tylenol w/codeine #3] 2 each PO Q4HR PRN #30 tab 11/07/16 [Rx] Ibuprofen [Motrin] 600 mg PO Q6HR PRN #30 tab 11/07/16 [Rx] Follow up Appointment(s)/Referral(s): Liane Nieves DO [Doctor of Osteopathic Medicine] - 6 Weeks
[2016-11-07] MEDS: IBUPROFEN 600 MG TAB PO PRN (13:21)
[2016-11-07 16:03] VITALS: BP 127/72; PULSE 55; TEMP 98.1
== END 2016-11-07 20:18 | disposition home or self-care (01) | DRG 775 ==
LOC: FBPOP 11:33 → 4FBP 11:54
PROVIDERS: ADMIT Obstetrics & Gynecology; ATTEND Obstetrics & Gynecology
PROC: 10E0XZZ Delivery of Products of Conception, External Approach (ICD-10-PCS; principal; 2016-11-05)
PROC: 0HQ9XZZ Repair Perineum Skin, External Approach (ICD-10-PCS; 2016-11-05)
DX: O69.81X0 Labor and delivery complicated by cord around neck, without compression, not applicable or unspecified (principal); O99.344 Other mental disorders complicating childbirth; F32.9 Major depressive disorder, single episode, unspecified; Z37.0 Single live birth; O99.02 Anemia complicating childbirth; O24.429 Gestational diabetes mellitus in childbirth, unspecified control; O62.2 Other uterine inertia; O70.0 First degree perineal laceration during delivery; O99.52 Diseases of the respiratory system complicating childbirth; F90.9 Attention-deficit hyperactivity disorder, unspecified type; J45.909 Unspecified asthma, uncomplicated; Z3A.37 37 weeks gestation of pregnancy; O99.824 Streptococcus B carrier state complicating childbirth; Z88.1 Allergy status to other antibiotic agents; Z88.5 Allergy status to narcotic agent; Z88.2 Allergy status to sulfonamides
CPT/HCPCS: 85025; 88307

== ENCOUNTER → 2017-01-16 | Outpatient (CLI) | payer OTHER | END | disposition home or self-care (01) | LOC: LABWHC1 11:31 | PROVIDERS: ATTEND Obstetrics & Gynecology | DX: Z34.81 Encounter for supervision of other normal pregnancy, first trimester (principal); Z3A.00 Weeks of gestation of pregnancy not specified | CPT/HCPCS: 36415; 84702 ==

== ENCOUNTER → 2018-12-27 | Outpatient (CLI) | payer OTHER ==
--- NOTE | 2018-12-28 08:07 | USB ---
Reason for exam: clinical finding. Indicated problem(s): lump or thickening and pain in the right breast. Physical Findings: Nurse Summary: Patient complains of right breast lump, pain, bruising upper inner quadrant 2 weeks ago, gone now (nurse mj). US Breast RT Right complete breast ultrasound includes all four quadrants, the retroareolar region and axilla. Finding demonstrates a 0.6 x 0.5 x 0.2cm oval lymph node at 2 o'clock. These results were verbally communicated with the patient and result sheet given to the patient on 12/27/18. ASSESSMENT: Benign, BI-RAD 2 RECOMMENDATION: Clinical management of the right breast. Manage patient on a clinical basis.
== END | disposition home or self-care (01) ==
LOC: RADUSWWP 14:33
PROVIDERS: ATTEND Obstetrics & Gynecology
DX: N63.10 Unspecified lump in the right breast, unspecified quadrant (principal); N64.4 Mastodynia

== ENCOUNTER 2020-01-25 00:24 | Emergency (ER) | payer OTHER ==
[2020-01-25 00:44] VITALS: RESP 18
[2020-01-25] MEDS ORDERED: FLUORESCEIN STRIPS 1 MG STRIP LEFT EYE ONE (00:46)
[2020-01-25] MEDS ORDERED: PROPARACAINE 0.5% OPHTH DROPS 15 ML BTL LEFT EYE STA (00:46)
[2020-01-25] MEDS ORDERED: ERYTHROMYCIN 5 MG/GM OPHTH OINT 3.5 GM TUBE LEFT EYE STA (01:47)
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
[2020-01-25 02:08] VITALS: BP 100/72; PULSE 65; TEMP 98.7
== END 2020-01-25 02:08 | disposition home or self-care (01) ==
LOC: EC 00:24
DX: S05.02XA Injury of conjunctiva and corneal abrasion without foreign body, left eye, initial encounter (principal); J45.909 Unspecified asthma, uncomplicated; Z79.899 Other long term (current) drug therapy; Z88.2 Allergy status to sulfonamides; Z88.1 Allergy status to other antibiotic agents; Z88.5 Allergy status to narcotic agent; Z87.891 Personal history of nicotine dependence; W22.8XXA Striking against or struck by other objects, initial encounter
CPT/HCPCS: 99283

== ENCOUNTER 2020-06-30 13:08 | Emergency (ER) | payer OTHER ==
[2020-06-30 13:20] VITALS: BP 100/50; PULSE 66; RESP 20; TEMP 97.8
[2020-06-30] MEDS ORDERED: ACET/COD 300 MG/30 MG STARTER PACK 6 TAB BTL PO STA (13:41)
--- NOTE | 2020-06-30 13:44 | ED ---
ENT HPI - General Chief complaint: Dental/Oral Stated complaint: dental infection Time Seen by Provider: 06/30/20 13:34 Source: patient, RN notes reviewed Mode of arrival: ambulatory Limitations: no limitations - History of Present Illness Initial comments: 29-year-old female presents emergency Department for right lower dental pain. Patient states she's too bad teeth. Patient is very painful. No fevers or chills swelling. She states she is appointment in 8 days with the dentist. Patient states she is concerned that maybe infected. Patient denies any chest pain shortness breath headache dizziness neck pain or neck stiffness. - Related Data Home Medications Medication Instructions Recorded Confirmed Acetaminophen [Tylenol] 325 mg PO Q4H 11/05/16 11/05/16 Albuterol Inhaler (Mhu) [Ventolin 1 - 2 puff INHALATION Q6HR PRN 11/05/16 11/05/16 Hfa Inhaler] Previous Rx's Medication Instructions Recorded Acetaminophen-Codeine 300-30mg 2 each PO Q4HR PRN #30 tab 11/07/16 [Tylenol w/codeine #3] Ibuprofen [Motrin] 600 mg PO Q6HR PRN #30 tab 11/07/16 Erythromycin Ophth Oint [Romycin 1 applic LEFT EYE QID 5 Days #1 01/25/20 Ophth Oint] tube Ibuprofen [Motrin] 600 mg PO Q8HR PRN #20 tab 06/30/20 Penicillin V Potassium [Pen Vee K] 500 mg PO QID #40 tablet 06/30/20 Allergies Allergy/AdvReac Type Severity Reaction Status Date / Time sulfamethoxazole Allergy Itching Verified 06/30/20 13:20 [From Bactrim] trimethoprim [From Bactrim] Allergy Itching Verified 06/30/20 13:20 hydrocodone bitartrate AdvReac Unknown Verified 06/30/20 13:20 [From Vicodin] Review of Systems ROS Statement: Those systems with pertinent positive or pertinent negative responses have been documented in the HPI. ROS Other: All systems not noted in ROS Statement are negative. Past Medical History Past Medical History: Asthma Additional Past Medical History / Comment(s): 3 previous vaginal deliveries. History of Any Multi-Drug Resistant Organisms: None Reported Past Surgical History: No Surgical Hx Reported Past Anesthesia/Blood Transfusion Reactions: No Reported Reaction Past Psychological History: ADD/ADHD, Depression, PTSD Smoking Status: Former smoker Past Alcohol Use History: None Reported Past Drug Use History: None Reported - Past Family History Mother Family Medical History: Asthma, Cancer Additional Family Medical History / Comment(s): cervical cancer General Exam Limitations: no limitations General appearance: alert, in no apparent distress Head exam: Present: atraumatic, normocephalic, normal inspection Eye exam: Present: normal appearance, PERRL, EOMI. Absent: scleral icterus, conjunctival injection, periorbital swelling ENT exam: Present: mucous membranes moist. Absent: normal oropharynx (Multiple dental caries, dental fracture right lower mild swelling no trismus no difficulty Secretions.) Neck exam: Present: normal inspection, full ROM. Absent: tenderness, meningismus, lymphadenopathy Respiratory exam: Present: normal lung sounds bilaterally. Absent: respiratory distress, wheezes, rales, rhonchi, stridor Cardiovascular Exam: Present: regular rate, normal rhythm, normal heart sounds. Absent: systolic murmur, diastolic murmur, rubs, gallop, clicks Course Vital Signs 06/30/20 13:17 Temperature 97.8 F Pulse Rate 66 Respiratory 20 Rate Blood Pressure 100/50 O2 Sat by Pulse 99 Oximetry Medical Decision Making - Medical Decision Making Patient has a known dental fracture dental caries with early infection. Patient is afebrile will be discharged in stable condition she has a follow-up with the dentist and return parameters were discussed. Disposition Clinical Impression: Fracture of tooth, Dental infection Disposition: HOME SELF-CARE Condition: Stable Instructions (If sedation given, give patient instructions): Toothache (ED) Additional Instructions: Please return to the Emergency Department if symptoms worsen or any other concerns. Prescriptions: Ibuprofen [Motrin] 600 mg PO Q8HR PRN #20 tab PRN Reason: Pain Penicillin V Potassium [Pen Vee K] 500 mg PO QID #40 tablet Is patient prescribed a controlled substance at d/c from ED?: No Referrals: None,Stated [Primary Care Provider] - 1-2 days Time of Disposition: 13:44
== END 2020-06-30 13:54 | disposition home or self-care (01) ==
LOC: EC 13:08
DX: S02.5XXA Fracture of tooth (traumatic), initial encounter for closed fracture (principal); K04.7 Periapical abscess without sinus; J45.909 Unspecified asthma, uncomplicated; X58.XXXA Exposure to other specified factors, initial encounter; Z87.891 Personal history of nicotine dependence
CPT/HCPCS: 99282

== ENCOUNTER → 2021-04-21 | Outpatient (CLI) | payer OTHER | END | disposition home or self-care (01) | LOC: LABWHC1 11:54 | PROVIDERS: ATTEND Family Medicine | DX: U07.1 COVID-19 (principal) | CPT/HCPCS: U0003; C9803 ==

== ENCOUNTER 2023-04-10 14:26 | Emergency (ER) | payer OTHER ==
[2023-04-10 14:45] VITALS: RESP 18
[2023-04-10] MEDS ORDERED: KETOROLAC 15 MG/ML 1 ML VIAL IVP STA ×2 (14:47→16:07)
[2023-04-10] MEDS ORDERED: SODIUM CHLORIDE 0.9% 500 ML 500 ML IV STA (14:47)
[2023-04-10] MEDS ORDERED: ONDANSETRON 4 MG/2 ML VIAL IVP STA (14:47)
--- NOTE | 2023-04-10 14:49 | ED ---
General Adult HPI - General Chief complaint: Nausea/Vomiting/Diarrhea Stated complaint: vomiting, headache Time Seen by Provider: 04/10/23 14:31 Source: patient, RN notes reviewed Mode of arrival: ambulatory Limitations: no limitations - History of Present Illness Initial comments: 32-year-old female presents to the emergency department for evaluation of nausea, vomiting, muscle aches, headache which started this morning when she woke up. She does admit to a mild cough. She admits to throat pain after vomiting but does not feel that she has a sore throat. She denies abdominal pain, urinary symptoms. Last bowel movement was today. She denies any significant past medical history. - Related Data Home Medications Medication Instructions Recorded Confirmed Acetaminophen [Tylenol] 325 mg PO Q4H 11/05/16 11/05/16 Albuterol Inhaler [Ventolin Hfa 1 - 2 puff INHALATION Q6HR PRN 11/05/16 11/05/16 Inhaler] Previous Rx's Medication Instructions Recorded Acetaminophen-Codeine 300-30mg 2 each PO Q4HR PRN #30 tab 11/07/16 [Tylenol w/codeine #3] Ibuprofen [Motrin] 600 mg PO Q6HR PRN #30 tab 11/07/16 Erythromycin Ophth Oint [Romycin 1 applic LEFT EYE QID 5 Days #1 01/25/20 Ophth Oint] tube Ibuprofen [Motrin] 600 mg PO Q8HR PRN #20 tab 06/30/20 Penicillin V Potassium [Pen Vee K] 500 mg PO QID #40 tablet 06/30/20 Allergies Allergy/AdvReac Type Severity Reaction Status Date / Time sulfamethoxazole Allergy Itching Verified 04/10/23 14:30 [From Bactrim] trimethoprim [From Bactrim] Allergy Itching Verified 04/10/23 14:30 hydrocodone bitartrate AdvReac Unknown Verified 04/10/23 14:30 [From Vicodin] Review of Systems ROS Statement: Those systems with pertinent positive or pertinent negative responses have been documented in the HPI. ROS Other: All systems not noted in ROS Statement are negative. Past Medical History Past Medical History: Asthma Additional Past Medical History / Comment(s): 3 previous vaginal deliveries. History of Any Multi-Drug Resistant Organisms: None Reported Past Surgical History: No Surgical Hx Reported Past Anesthesia/Blood Transfusion Reactions: No Reported Reaction Past Psychological History: ADD/ADHD, Depression, PTSD Smoking Status: Former smoker Past Alcohol Use History: None Reported Past Drug Use History: None Reported - Past Family History Mother Family Medical History: Asthma, Cancer Additional Family Medical History / Comment(s): cervical cancer General Exam Limitations: no limitations General appearance: alert, in no apparent distress Head exam: Present: atraumatic, normocephalic, normal inspection Eye exam: Present: normal appearance, PERRL, EOMI. Absent: scleral icterus, conjunctival injection, periorbital swelling ENT exam: Present: normal exam, mucous membranes moist, TM's normal bilaterally, normal external ear exam Neck exam: Present: normal inspection. Absent: tenderness, meningismus, lymphadenopathy Respiratory exam: Present: normal lung sounds bilaterally. Absent: respiratory distress, wheezes, rales, rhonchi, stridor Cardiovascular Exam: Present: regular rate, normal rhythm, normal heart sounds. Absent: systolic murmur, diastolic murmur, rubs, gallop, clicks GI/Abdominal exam: Present: soft, normal bowel sounds. Absent: distended, tenderness, guarding, rebound, rigid Course Vital Signs 04/10/23 04/10/23 04/10/23 14:28 14:38 15:57 Temperature 99.1 F 99.0 F Pulse Rate 109 H 92 65 Respiratory 18 18 18 Rate Blood Pressure 113/74 111/76 101/78 O2 Sat by Pulse 99 98 97 Oximetry Medical Decision Making - Medical Decision Making Was pt. sent in by a medical professional or institution (, PA, TRAFFIC MAINTENANCE OFFICER, urgent care, hospital, or residential...) When possible be specific @ -No Did you speak to anyone other than the patient for history (EMS, parent, family, police, friend...)? What history was obtained from this source @ -No Did you review nursing and triage notes (agree or disagree)? Why? @ -I reviewed and agree with nursing and triage notes Were old charts reviewed (outside hosp., previous admission, EMS record, old EKG, old radiological studies, urgent care reports/EKG's, residential records)? Report findings @ -No old charts were reviewed Differential Diagnosis (chest pain, altered mental status, abdominal pain women, abdominal pain men, vaginal bleeding, weakness, fever, dyspnea, syncope, headache, dizziness, GI bleed, back pain, seizure, CVA, palpatations, mental health, musculoskeletal)? @ -Covid, influenza, RSV, pneumonia, this list is not all-inclusive EKG interpreted by me (3pts min.). @ -None X-rays interpreted by me (1pt min.). @ -chest x-ray shows no acute infiltrate CT interpreted by me (1pt min.). @ -None done U/S interpreted by me (1pt. min.). @ -None done What testing was considered but not performed or refused? (CT, X-rays, U/S, labs)? Why? @ -None What meds were considered but not given or refused? Why? @ -None Did you discuss the management of the patient with other professionals (mathew ch iJeweleJewel Laird, PA, TRAFFIC MAINTENANCE OFFICER, lab, RT, psych nurse, social worker aide, wireless sales manager, teacher, staff mine warfare officer, case management associate)? Give summary @ -No Was smoking cessation discussed for >3mins.? @ -No Was critical care preformed (if so, how long)? @ -No Were there social determinants of health that impacted care today? How? (Homelessness, low income, unemployed, alcoholism, drug addiction, transportatio n, low edu. Level, literacy, decrease access to med. care, assisted, rehab)? @ -No Was there de-escalation of care discussed even if they declined (Discuss DNR or withdrawal of care, Hospice)? DNR status @ -No What co-morbidities impacted this encounter? (DM, HTN, Smoking, COPD, CAD, Cancer, CVA, ARF, Chemo, Hep., AIDS, mental health diagnosis, sleep apnea, morbid obesity)? @ -None Was patient admitted / discharged? Hospital course, mention meds given and route, prescriptions, significant lab abnormalities, going to OR and other pertinent info. @ -Discharge. Patient presented to the emergency department for evaluation of myalgias, cough, headache, nausea, vomiting 1 day. On examination, patient is well-appearing, cardiac regular rate and rhythm, abdomen soft nontender. Laboratory studies obtained and essentially unremarkable. Covid positive. Influenza, RSV negative. Patient was given 500 bolus of normal saline, Zofran, Toradol which improved her symptoms. Patient is tolerating oral intake. Patient advised on findings. Patient will be discharged home. Patient understanding agreeable with plan. Patient stable at time of discharge. Case discussed with Dr. Waterman. Undiagnosed new problem with uncertain prognosis? @ -No Drug Therapy requiring intensive monitoring for toxicity (Heparin, Nitro, Insulin, Cardizem)? @ -No Were any procedures done? @ -No Diagnosis/symptom? @ -covid 19 Acute, or Chronic, or Acute on Chronic? @ -acute Uncomplicated (without systemic symptoms) or Complicated (systemic symptoms)? @ -complicated Side effects of treatment? @ -No Exacerbation, Progression, or Severe Exacerbation? @ -No Poses a threat to life or bodily function? How? (Chest pain, [place], [place], pneumonia, PE, COPD, DKA, ARF, appy, cholecystitis, CVA, Diverticulitis, Homicidal, Suicidal, threat to staff... and all critical care pts) @ -No - Lab Data Result diagrams: 04/10/23 14:51 04/10/23 14:51 Lab Results 04/10/23 04/10/23 04/10/23 Range/Units 14:51 14:51 14:51 WBC 4.5 (3.8-10.6) k/uL RBC 5.13 (3.80-5.40) m/uL Hgb 14.2 (11.4-16.0) gm/dL Hct 44.3 (34.0-46.0) % MCV 86.3 (80.0-100.0) fL MCH 27.8 (25.0-35.0) pg MCHC 32.2 (31.0-37.0) g/dL RDW 12.7 (11.5-15.5) % Plt Count 135 L (150-450) k/uL MPV 8.6 Neutrophils % 81 % Lymphocytes % 7 % Monocytes % 8 % Eosinophils % 1 % Basophils % 1 % Neutrophils # 3.6 (1.3-7.7) k/uL Lymphocytes # 0.3 L (1.0-4.8) k/uL Monocytes # 0.4 (0-1.0) k/uL Eosinophils # 0.1 (0-0.7) k/uL Basophils # 0.0 (0-0.2) k/uL Sodium 137 (137-145) mmol/L Potassium 4.3 (3.5-5.1) mmol/L Chloride 103 (98-107) mmol/L Carbon Dioxide 21 L (22-30) mmol/L Anion Gap 13 mmol/L BUN 5 L (7-17) mg/dL Creatinine 0.74 (0.52-1.04) mg/dL Est GFR (CKD-EPI)AfAm >90 (>60 ml/min/1.73 sqM) Est GFR (CKD-EPI)NonAf >90 (>60 ml/min/1.73 sqM) Glucose 88 (74-99) mg/dL Calcium 9.3 (8.4-10.2) mg/dL Total Bilirubin 0.6 (0.2-1.3) mg/dL AST 25 (14-36) U/L ALT 13 (4-34) U/L Alkaline Phosphatase 58 (38-126) U/L Total Protein 8.0 (6.3-8.2) g/dL Albumin 4.6 (3.5-5.0) g/dL Amylase 80 (30-110) U/L Lipase 116 (23-300) U/L Influenza Type A (PCR) Not Detected (Not Detectd) Influenza Type B (PCR) Not Detected (Not Detectd) RSV (PCR) Not Detected (Not Detectd) SARS-CoV-2 (PCR) Detected A (Not Detectd) Disposition Clinical Impression: COVID-19 Disposition: HOME SELF-CARE Condition: Stable Instructions (If sedation given, give patient instructions): Acute Nausea and Vomiting (ED), COVID-19 (Coronavirus Disease 2019) (ED) Additional Instructions: Alternate Tylenol and Motrin for fever and discomfort. Please follow up with your primary care provider. Return to the emergency department for new or worsening symptoms. Is patient prescribed a controlled substance at d/c from ED?: No Referrals: Brianne Ontiveros MD [Primary Care Provider] - 1-2 days
[2023-04-10 15:22] LABS: Basophils % (A) 1 %; Eosinophils # (A) 0.1 k/uL (0-0.7); Eosinophils % (A) 1 %; HCT 44.3 % (34.0-46.0); HGB 14.2 gm/dL (11.4-16.0); Lymphocytes # (A) 0.3 k/uL (1.0-4.8); Lymphocytes % (A) 7 %; MCH 27.8 pg (25.0-35.0); MCHC 32.2 g/dL (31.0-37.0); MCV 86.3 fL (80.0-100.0); Mean Platelet Volume 8.6; Monocytes # (A) 0.4 k/uL (0-1.0); Monocytes % (A) 8 %; Neutrophils # (A) 3.6 k/uL (1.3-7.7); Neutrophils % (A) 81 %; Platelet Count 135 k/uL (150-450); RBC 5.13 m/uL (3.80-5.40); RDW 12.7 % (11.5-15.5); WBC 4.5 k/uL (3.8-10.6)
[2023-04-10 15:33] LABS: ALT 13 U/L (4-34); AST 25 U/L (14-36); African American GFR (CKD) >90 (>60 ml/min/1.73 sqM); Albumin 4.6 g/dL (3.5-5.0); Alkaline Phosphatase 58 U/L (38-126); Amylase 80 U/L (30-110); Anion Gap 13 mmol/L; Blood Urea Nitrogen 5 mg/dL (7-17); Calcium 9.3 mg/dL (8.4-10.2); Carbon Dioxide 21 mmol/L (22-30); Chloride 103 mmol/L (98-107); Glucose 88 mg/dL (74-99); Lipase 116 U/L (23-300); Non-African American GFR(CKD) >90 (>60 ml/min/1.73 sqM); Sodium 137 mmol/L (137-145); Total Bilirubin 0.6 mg/dL (0.2-1.3)
[2023-04-10 15:34] LABS: Potassium 4.3 mmol/L (3.5-5.1)
--- NOTE | 2023-04-10 15:49 | XR ---
EXAMINATION TYPE: XR chest 2V DATE OF EXAM: 04/10/2023 COMPARISON: 06/05/2015 HISTORY: 32-year-old female cough and fever TECHNIQUE: PA and lateral views FINDINGS: The cardiomediastinal silhouette, aorta, and pulmonary vasculature are within normal limits. Bilatera l nipple shadows. Otherwise, lungs and pleural spaces are clear. IMPRESSION: No acute cardiopulmonary process.
[2023-04-10] MEDS ORDERED: ACETAMINOPHEN TAB 325 MG TAB PO STA (16:07)
[2023-04-10 16:10] VITALS: BP 101/78
[2023-04-10] MEDS ORDERED: ONDANSETRON 4 MG ODT STARTER PACK 2 TAB BTL PO STA (16:17)
[2023-04-10 16:52] VITALS: PULSE 84; TEMP 98.4
== END 2023-04-10 17:04 | disposition home or self-care (01) ==
LOC: EC 14:26
DX: U07.1 COVID-19 (principal); J45.909 Unspecified asthma, uncomplicated; Z87.891 Personal history of nicotine dependence; Z88.2 Allergy status to sulfonamides; Z88.5 Allergy status to narcotic agent; Z86.59 Personal history of other mental and behavioral disorders
CPT/HCPCS: 36415; 80053; 82150; 83690; 85025; 87636; 71046; 99284; 96374; 96375; 96376; 96361; J2405; J1885; S0119

== ENCOUNTER 2023-11-15 04:18 | Emergency (ER) | payer OTHER ==
--- NOTE | 2023-11-15 04:47 | ED ---
Fall HPI <Jesu Jerez - Last Filed: 11/15/23 09:19> - General Source: patient Mode of arrival: ambulatory - History of Present Illness MD Complaint: fall Onset/Timin -: hour(s) Fall From: down stairs (#) When Fall Occurred: [address] Fall Occurred: home Loss of Consciousness: none Prolonged Down Time?: no Symptoms Prior to Fall: none Location: head Location - Extremities: Left: Forearm Severity: severe Context: tripped/slipped <Gaetano Jones - Last Filed: 12/19/23 11:49> - General Chief Complaint: Fall Stated Complaint: Fall, Head Injury, Left Arm Injury - History of Present Illness Initial Comments: Patient is a 33-year-old woman who presents to evaluation for left forearm pain and scalp laceration after a fall. The patient states that she had tried to use the stairs at home tonight without turning the lights on. She states that she tripped and fell. She struck the left wrist and the back of her head. There was no loss consciousness. She noted that there was a laceration and that it looked like her wrist was broken. She is having severe pain at the wrist. She states that there is not really much headache. (Gaetano Jones) - Related Data Home Medications Medication Instructions Recorded Confirmed Acetaminophen [Tylenol] 325 mg PO Q4H 11/05/16 11/05/16 Albuterol Inhaler [Ventolin Hfa 1 - 2 puff INHALATION Q6HR PRN 11/05/16 11/05/16 Inhaler] Previous Rx's Medication Instructions Recorded Acetaminophen-Codeine 300-30mg 2 each PO Q4HR PRN #30 tab 11/07/16 [Tylenol w/codeine #3] Ibuprofen [Motrin] 600 mg PO Q6HR PRN #30 tab 11/07/16 Erythromycin Ophth Oint [Romycin 1 applic LEFT EYE QID 5 Days #1 01/25/20 Ophth Oint] tube Ibuprofen [Motrin] 600 mg PO Q8HR PRN #20 tab 06/30/20 Penicillin V Potassium [Pen Vee K] 500 mg PO QID #40 tablet 06/30/20 Allergies Allergy/AdvReac Type Severity Reaction Status Date / Time sulfamethoxazole Allergy Itching Verified 11/15/23 04:23 [From Bactrim] trimethoprim [From Bactrim] Allergy Itching Verified 11/15/23 04:23 hydrocodone bitartrate AdvReac Unknown Verified 11/15/23 04:23 [From Vicodin] Review of Systems ROS Other: All systems not noted in ROS Statement are negative. <Jesu Jerez - Last Filed: 11/15/23 09:19> ROS Other: All systems not noted in ROS Statement are negative. Constitutional: Denies: fever, weakness Eyes: Denies: vision change ENT: Denies: ear pain, epistaxis Respiratory: Denies: cough, dyspnea Cardiovascular: Denies: chest pain, palpitations, syncope Gastrointestinal: Denies: abdominal pain, nausea, vomiting Genitourinary: Denies: dysuria, hematuria Musculoskeletal: Denies: back pain, arthralgia Skin: Denies: rash Neurological: Denies: headache, weakness, numbness, paresthesias, confusion Hematological/Lymphatic: Denies: easy bleeding <Gaetano Jones - Last Filed: 12/19/23 11:49> ROS Statement: Those systems with pertinent positive or pertinent negative responses have been documented in the HPI. Past Medical History Past Medical History: Asthma Additional Past Medical History / Comment(s): 3 previous vaginal deliveries. History of Any Multi-Drug Resistant Organisms: None Reported Past Surgical History: No Surgical Hx Reported Past Anesthesia/Blood Transfusion Reactions: No Reported Reaction Past Psychological History: ADD/ADHD, Depression, PTSD Smoking Status: Former smoker Past Alcohol Use History: None Reported Past Drug Use History: None Reported - Past Family History Mother Family Medical History: Asthma, Cancer Additional Family Medical History / Comment(s): cervical cancer <Gaetano Jones - Last Filed: 12/19/23 11:49> General Exam Limitations: no limitations General appearance: alert, in no apparent distress Head exam: Present: normocephalic, other (Approximately 3 cm laceration posterior scalp. No bony tenderness or deformity) Eye exam: Present: normal appearance, PERRL, EOMI. Absent: scleral icterus, conjunctival injection, nystagmus Neck exam: Present: normal inspection, full ROM. Absent: tenderness, meni ngismus Respiratory exam: Present: normal lung sounds bilaterally. Absent: respiratory distress, wheezes, rales, rhonchi, stridor, accessory muscle use Cardiovascular Exam: Present: regular rate, normal rhythm, normal heart sounds. Absent: systolic murmur, diastolic murmur, rubs, gallop GI/Abdominal exam: Present: soft. Absent: distended, tenderness, guarding, rebound, rigid, mass Extremities exam: Present: tenderness, normal capillary refill. Absent: full ROM Left Shoulder Exam: Present: normal inspection, full ROM. Absent: tenderness, swelling Upper Arm exam: Present: normal inspection, full ROM. Absent: tenderness, swelling Elbow exam: Present: normal inspection, full ROM. Absent: tenderness, swelling Hand Wrist exam: Present: tenderness, swelling, deformity. Absent: normal inspection, full ROM Neurosensory exam: Present: radial nerve intact, ulnar nerve intact, median nerve intact Vascular: Present: normal capillary refill. Absent: vascular compromise, pulse deficit radial art, pulse deficit ulnar art, pulse deficit brachial art Back exam: Present: normal inspection. Absent: CVA tenderness (R), CVA tenderness (L), vertebral tenderness Neurological exam: Present: alert, oriented X3, CN II-XII intact. Absent: motor sensory deficit Skin exam: Present: warm, dry, normal color <Gaetano Jones - Last Filed: 12/19/23 11:49> Course Vital Signs 11/15/23 11/15/23 11/15/23 04:18 05:10 06:32 Temperature 97.9 F Pulse Rate 71 52 L 52 L Respiratory 16 19 17 Rate Blood Pressure 125/88 91/63 108/69 O2 Sat by Pulse 97 Oximetry 11/15/23 11/15/23 11/15/23 06:50 06:55 07:00 Temperature Pulse Rate 56 L 53 L 54 L Respiratory 16 16 16 Rate Blood Pressure 121/65 137/88 125/76 O2 Sat by Pulse 99 100 100 Oximetry 11/15/23 11/15/23 11/15/23 07:05 07:23 07:45 Temperature Pulse Rate 47 L 55 L 48 L Respiratory 16 16 18 Rate Blood Pressure 120/78 104/68 98/56 O2 Sat by Pulse 98 98 98 Oximetry 11/15/23 11/15/23 11/15/23 08:00 08:30 09:00 Temperature Pulse Rate 48 L 48 L 35 L Respiratory 18 18 18 Rate Blood Pressure 93/60 99/60 92/68 O2 Sat by Pulse 98 98 98 Oximetry 11/15/23 11/15/23 09:14 09:29 Temperature 98.0 F Pulse Rate 48 L 45 L Respiratory 18 16 Rate Blood Pressure 93/60 106/59 O2 Sat by Pulse 98 98 Oximetry Medical Decision Making <Gaetano Jones - Last Filed: 12/19/23 11:49> - Medical Decision Making The patient had x-ray of the wrist that I interpreted to show fracture of the radius/ulna. Was pt. sent in by a medical professional or institution (, PA, CABLE REELER, urgent care, hospital, or usp...) When possible be specific @ -[No] Did you speak to anyone other than the patient for history (EMS, parent, family, police, friend...)? What history was obtained from this source @ -[No] Did you review nursing and triage notes (agree or disagree)? Why? @ -[I reviewed and agree with nursing and triage notes] Were old charts reviewed (outside hosp., previous admission, EMS record, old EKG, old radiological studies, urgent care reports/EKG's, usp records)? Report findings @ -[No old charts were reviewed] Differential Diagnosis (chest pain, altered mental status, abdominal pain women, abdominal pain men, vaginal bleeding, weakness, fever, dyspnea, syncope, headache, dizziness, GI bleed, back pain, seizure, CVA, palpatations, mental health, musculoskeletal)? @ -[Differential Musculoskeletal Muscular strain, contusion, ligament sprain, fracture, arthritis, septic arthritis, bursitis, cellulitis, muscle spasm, nerve compression, DVT, arterial occlusion, herpes zoster, electrolyte abnormality, tumor.... This is not meant to be in all inclusive list EKG interpreted by me (3pts min.). @ -[As above] X-rays interpreted by me (1pt min.). @ -[I interpreted as above CT interpreted by me (1pt min.). @ -[None done] U/S interpreted by me (1pt. min.). @ -[None done] What testing was considered but not performed or refused? (CT, X-rays, U/S, labs)? Why? @ -[None] What meds were considered but not given or refused? Why? @ -[None] Did you discuss the management of the patient with other professionals (professionals i.e. , PA, CABLE REELER, lab, RT, psych nurse, psychiatric social worker, outreach director, teacher, employee service officer, oil field caser)? Give summary @ -[No] Was smoking cessation discussed for >3mins.? @ -[No] Was critical care preformed (if so, how long)? @ -[No] Were there social determinants of health that impacted care today? How? (Homelessness, low income, unemployed, alcoholism, drug addiction, transportation, low edu. Level, literacy, decrease access to med. care, nursing home, rehab)? @ -[No] Was there de-escalation of care discussed even if they declined (Discuss DNR or withdrawal of care, Hospice)? DNR status @ -[No] What co-morbidities impacted this encounter? (DM, HTN, Smoking, COPD, CAD, Cancer, CVA, ARF, Chemo, Hep., AIDS, mental health diagnosis, sleep apnea, morbid obesity)? @ -[None] Was patient admitted / discharged? Hospital course, mention meds given and route, prescriptions, significant lab abnormalities, going to OR and other pertinent info. @ -[The patient is a 33-year-old woman who had a fall injury that included fracture of the distal radius ulna. We did attempt closed reduction and splinting using procedural sedation with ketamine. The alignment is not much improved, case discussed with orthopedic surgery who will have the patient follow in clinic Undiagnosed new problem with uncertain prognosis? @ -[No] Drug Therapy requiring intensive monitoring for toxicity (Heparin, Nitro, Insulin, Cardizem)? @ -[No] Were any procedures done? @ -Yes, procedural sedation followed by attempted closed reduction of the radius ulna fracture and splinting Diagnosis/symptom? @ -[ Acute fall injury Distal radius ulna fracture Scalp laceration Acute, or Chronic, or Acute on Chronic? @ -[Acute Uncomplicated (without systemic symptoms) or Complicated (systemic symptoms)? @ -[Uncomplicated Side effects of treatment? @ -[No] Exacerbation, Progression, or Severe Exacerbation? @ -[No] Poses a threat to life or bodily function? How? (Chest pain, [place], [place], pneumonia, PE, COPD, DKA, ARF, appy, cholecystitis, CVA, Diverticulitis, Homicidal, Suicidal, threat to staff... and all critical care pts) @ -[No] (Gaetano Jones) Disposition <Jesu Jerez - Last Filed: 11/15/23 09:19> Is patient prescribed a controlled substance at d/c from ED?: No <Gaetano Jones - Last Filed: 12/19/23 11:49> Clinical Impression: Fall, Radius fracture, Scalp laceration Disposition: HOME SELF-CARE Condition: Good Instructions (If sedation given, give patient instructions): Laceration (ED), Wrist Fracture in Adults (ED), Moderate Sedation (ED) Referrals: Brianne Ontiveros MD [Primary Care Provider] - 1-2 days Pranav Decker DO [Doctor of Osteopathic Medicine] - 1-2 days
[2023-11-15] MEDS: MORPHINE SULFATE 4 MG/ML SYRINGE IV STA (04:50)
--- NOTE | 2023-11-15 05:52 | XR ---
EXAMINATION TYPE: XR wrist complete LT DATE OF EXAM: 11/15/2023 CLINICAL HISTORY: Fall injury with pain TECHNIQUE: Frontal, lateral and oblique images of the left wrist are obtained. COMPARISON: Prior left wrist x-ray July 16, 2012 FINDINGS: There is an acute comminuted fracture with predominant transverse component through the di stal radial metadiaphysis with slight impaction and dorsal angulation of distal fracture fragment. Ad jacent ulna is intact. Carpal joint spaces are maintained. The overlying soft tissue appears unremar kable. IMPRESSION: There is acute slightly displaced comminuted fracture distal radial metaphysis.
[2023-11-15] MEDS: LIDOCAINE 1% INJ 10MG/ML (20 ML MDV) SQ ONE (06:17)
[2023-11-15] MEDS: HYDROmorphone 0.5 MG/0.5 ML SYRINGE IVP STA (06:18)
[2023-11-15] MEDS: KETAMINE 10 MG/ML 20 ML VIAL IV ONE (06:47)
--- NOTE | 2023-11-15 07:40 | XR ---
EXAMINATION TYPE: XR wrist limited LT DATE OF EXAM: 11/15/2023 CLINICAL HISTORY: Postreduction TECHNIQUE: Inguinal view of the left wrist is submitted. COMPARISON: None. FINDINGS: Transversely oriented distal radial fracture is redemonstrated. Overlying cast material is noted. Alignment is not significantly changed on this limited one. IMPRESSION: As above
[2023-11-15] MEDS: ONDANSETRON 4 MG ODT STARTER PACK 2 TAB BTL PO STA (09:26)
[2023-11-15] MEDS: ONDANSETRON 4 MG/2 ML VIAL IVP STA (09:26)
[2023-11-15] MEDS: ACET/COD 300 MG/30 MG STARTER PACK 6 TAB BTL PO STA (09:27)
[2023-11-15 09:32] VITALS: BP 106/59; PULSE 45; RESP 16; TEMP 98
== END 2023-11-15 09:39 | disposition home or self-care (01) ==
LOC: EC 04:18
DX: S52.592A Other fractures of lower end of left radius, initial encounter for closed fracture (principal); S01.01XA Laceration without foreign body of scalp, initial encounter; Z87.891 Personal history of nicotine dependence; Z88.1 Allergy status to other antibiotic agents; Z88.5 Allergy status to narcotic agent; Z88.2 Allergy status to sulfonamides; W10.9XXA Fall (on) (from) unspecified stairs and steps, initial encounter
CPT/HCPCS: 73100; 73110; 99283; 96374; 96375 ×3; 99152; J2270; J2405; J2001; S0119; J1170

== ENCOUNTER → 2024-04-04 | Outpatient (CLI) | payer OTHER ==
--- NOTE | 2024-04-21 22:45 | MR ---
EXAM: MR wrist LT wo con DATE OF EXAM: 04/04/2024 COMPARISON: Left wrist radiographs 11/15/2023 HISTORY: Hx of broken distal radius, lt wrist pain TECHNIQUE: Multiplanar, multisequence images of the left wrist were acquired without contrast. FINDINGS: BONES/JOINTS: Chronic healed fracture deformity of the distal radial metaphysis. Normal bone marrow s ignal. Normal alignment. No ulnar variance. Distal radioulnar joint is normal. No joint effusion. LIGAMENTS: Scapholunate and lunotriquetral ligaments are normal. Extrinsic carpal ligaments are huey l. Triangular fibrocartilaginous complex is normal. TENDONS: Flexor tendons are normal. Trace amount of fluid within the second extensor compartment tend on sheath. SOFT TISSUES: Carpal tunnel is normal. Guyon's canal is normal. No bursal distention. No fluid collec tion. NEUROVASCULAR: The median nerve is normal in size, signal, and location. The ulnar nerve is normal in size, signal, and location. Vascular structures are normal OTHER: Normal. IMPRESSION: 1. Chronic healed fracture deformity of the distal radial metaphysis. 2. Increased fluid within the second extensor compartment tendon sheath, may relate to tenosynovitis. [facility], Workstation: [employer], 04/21/2024 10:43 PM
== END | disposition home or self-care (01) ==
LOC: RADMRIMAIN 08:34
PROVIDERS: ATTEND Orthopaedic Surgery Hand Surgery
DX: S52.572D Other intraarticular fracture of lower end of left radius, subsequent encounter for closed fracture with routine healing (principal); M24.232 Disorder of ligament, left wrist; X58.XXXD Exposure to other specified factors, subsequent encounter

== ENCOUNTER 2024-05-21 09:40 | Emergency (ER) | payer OTHER ==
[2024-05-21 09:55] VITALS: TEMP 98.8
--- NOTE | 2024-05-21 10:13 | ED ---
General Adult HPI - General Chief complaint: Extremity Injury, Upper Stated complaint: Fall, left arm injury Time Seen by Provider: 05/21/24 09:58 Source: patient, RN notes reviewed, old records reviewed Mode of arrival: ambulatory Limitations: no limitations - History of Present Illness Initial comments: 33-year-old female with left wrist injury. Patient fell on the ice injuring her left wrist. This occurred this morning. She has a remote injury to this wrist with fracture history. Denies head or neck trauma. No other injury reported. - Related Data Home Medications Medication Instructions Recorded Confirmed Acetaminophen [Tylenol] 325 mg PO Q4H 11/05/16 11/05/16 Albuterol Inhaler [Ventolin Hfa 1 - 2 puff INHALATION Q6HR PRN 11/05/16 11/05/16 Inhaler] Previous Rx's Medication Instructions Recorded Acetaminophen-Codeine 300-30mg 2 each PO Q4HR PRN #30 tab 11/07/16 [Tylenol w/codeine #3] Ibuprofen [Motrin] 600 mg PO Q6HR PRN #30 tab 11/07/16 Erythromycin Ophth Oint [Romycin 1 applic LEFT EYE QID 5 Days #1 01/25/20 Ophth Oint] tube Ibuprofen [Motrin] 600 mg PO Q8HR PRN #20 tab 06/30/20 Penicillin V Potassium [Pen Vee K] 500 mg PO QID #40 tablet 06/30/20 Allergies Allergy/AdvReac Type Severity Reaction Status Date / Time sulfamethoxazole Allergy Itching Verified 05/21/24 09:55 [From Bactrim] trimethoprim [From Bactrim] Allergy Itching Verified 05/21/24 09:55 hydrocodone bitartrate AdvReac Unknown Verified 05/21/24 09:55 [From Vicodin] Review of Systems ROS Statement: Those systems with pertinent positive or pertinent negative responses have been documented in the HPI. ROS Other: All systems not noted in ROS Statement are negative. Past Medical History Past Medical History: Asthma Additional Past Medical History / Comment(s): 3 previous vaginal deliveries. History of Any Multi-Drug Resistant Organisms: None Reported Past Surgical History: No Surgical Hx Reported Past Anesthesia/Blood Transfusion Reactions: No Reported Reaction Past Psychological History: ADD/ADHD, Depression, PTSD Smoking Status: Former smoker Past Alcohol Use History: None Reported Past Drug Use History: None Reported - Past Family History Mother Family Medical History: Asthma, Cancer Additional Family Medical History / Comment(s): cervical cancer General Exam Limitations: no limitations General appearance: alert, in no apparent distress Head exam: Present: atraumatic, normocephalic Eye exam: Present: normal appearance, PERRL ENT exam: Present: normal exam Neck exam: Present: normal inspection. Absent: tenderness, meningismus Respiratory exam: Present: normal lung sounds bilaterally. Absent: respiratory distress Cardiovascular Exam: Present: regular rate, normal rhythm GI/Abdominal exam: Present: soft. Absent: distended, tenderness, guarding Extremities exam: Present: tenderness (Tenderness over the left wrist, no gross abnormality normal cap refill, skin discoloration over the ulnar styloid) Neurological exam: Present: alert, oriented X3 Psychiatric exam: Present: normal affect, normal mood Course Vital Signs 05/21/24 09:51 Temperature 98.8 F Pulse Rate 112 H Respiratory 17 Rate Blood Pressure 128/84 O2 Sat by Pulse 98 Oximetry Medical Decision Making - Medical Decision Making Was pt. sent in by a medical professional or institution (Dr. PA, ELECTRO MECHANICAL ENGINEER, urgent care, hospital, or longterm...) When possible be specific @ -No Did you speak to anyone other than the patient for history (EMS, parent, family, police, friend...)? What history was obtained from this source @ -No Did you review nursing and triage notes (agree or disagree)? Why? @ -I reviewed and agree with nursing and triage notes Were old charts reviewed (outside hosp., previous admission, EMS record, old EKG, old radiological studies, urgent care reports/EKG's, longterm records)? Report findings @ -No old charts were reviewed Differential Musculoskeletal Muscular strain, contusion, ligament sprain, fracture, arthritis, septic arthritis, bursitis, cellulitis, muscle spasm, nerve compression, DVT, arterial occlusion, herpes zoster, electrolyte abnormality, tumor.... This is not meant to be in all inclusive list EKG interpreted by me (3pts min.). @ -As above X-rays interpreted by me (1pt min.). @X-ray of the left wrist is negative for displaced fracture, old distal radius fracture, well-healed CT interpreted by me (1pt min.). @ -None done U/S interpreted by me (1pt. min.). @ -None done What testing was considered but not performed or refused? (CT, X-rays, U/S, labs)? Why? @ -None What meds were considered but not given or refused? Why? @ -None Did you discuss the management of the patient with other professionals (professionals i.e. , PA, ELECTRO MECHANICAL ENGINEER, lab, RT, psych nurse, oncology social worker, building carpenter, teacher, landing signal officer, renal case manager)? Give summary @ -No Was smoking cessation discussed for >3mins.? @ -No Was critical care preformed (if so, how long)? @ -No Were there social determinants of health that impacted care today? How? (Homelessness, low income, unemployed, alcoholism, drug addiction, transportation, low edu. Level, literacy, decrease access to med. care, alf, rehab)? @ -No Was there de-escalation of care discussed even if they declined (Discuss DNR or withdrawal of care, Hospice)? DNR status @ -No What co-morbidities impacted this encounter? (DM, HTN, Smoking, COPD, CAD, Cancer, CVA, ARF, Chemo, Hep., AIDS, mental health diagnosis, sleep apnea, morbid obesity)? @ -Prior left wrist fracture Was patient admitted / discharged? Hospital course, mention meds given and route, prescriptions, significant lab abnormalities, going to OR and other pertinent info. @ -[33-year-old female slip and fall with left wrist injury. No gross deformity on exam. Distal pulse intact, normal cap refill, normal range of motion. There is a chronic skin change to the ulnar side of the wrist which the patient states is unchanged from baseline this is secondary to previous wrist injury. X-rays performed today are negative for displaced fracture. Patient stable for discharge with outpatient primary care follow-up. Undiagnosed new problem with uncertain prognosis? @ -No Drug Therapy requiring intensive monitoring for toxicity (Heparin, Nitro, Insulin, Cardizem)? @ -No Were any procedures done? @ -No Diagnosis/symptom? @ -[Wrist sprain Acute, or Chronic, or Acute on Chronic? @ -Acute Uncomplicated (without systemic symptoms) or Complicated (systemic symptoms)? @ -[default Side effects of treatment? @ -No Exacerbation, Progression, or Severe Exacerbation? @ -No Poses a threat to life or bodily function? How? (Chest pain, USA, PA, pneumonia, PE, COPD, DKA, ARF, appy, cholecystitis, CVA, Diverticulitis, Homicidal, Suicidal, threat to staff... and all critical care pts) @ -No Disposition Clinical Impression: Left wrist sprain Disposition: HOME SELF-CARE Condition: Good Instructions (If sedation given, give patient instructions): Wrist Injury (ED) Is patient prescribed a controlled substance at d/c from ED?: No Referrals: Brianne Ontiveros MD [Primary Care Provider] - 1-2 days Time of Disposition: 10:25
--- NOTE | 2024-05-21 10:29 | XR ---
EXAMINATION TYPE: XR wrist complete LT DATE OF EXAM: 05/21/2024 10:23 AM COMPARISON: 11/15/2023 CLINICAL INDICATION: Female, 33 years old with history of fall, pain TECHNIQUE: XR wrist complete LT; examined in the Frontal, navicular, lateral, and oblique. FINDINGS: Remote appearing fracture of the distal radius. There is complete osseous fusion suggested. No acute osseous pathology, joint dislocation, or joint effusion. No evidence of any soft tissue sw elling is seen. IMPRESSION: No acute osseous pathology. Normal-appearing distal radius fracture with slight dorsal angulation and complete osseous fusion. [facility], , 05/21/2024 10:27 AM
[2024-05-21 10:51] VITALS: BP 107/73; PULSE 71; RESP 18
== END 2024-05-21 10:51 | disposition home or self-care (01) ==
LOC: EC 09:40
DX: S63.502A Unspecified sprain of left wrist, initial encounter (principal); S62.92XA Unspecified fracture of left hand, initial encounter for closed fracture; Z87.891 Personal history of nicotine dependence; Z88.1 Allergy status to other antibiotic agents; Z88.2 Allergy status to sulfonamides; Z88.5 Allergy status to narcotic agent; W00.0XXA Fall on same level due to ice and snow, initial encounter
CPT/HCPCS: 99284

== ENCOUNTER 2024-06-30 23:12 | Emergency (ER) | payer OTHER ==
[2024-06-30 23:18] VITALS: TEMP 97.9
--- NOTE | 2024-06-30 23:35 | ED ---
Abdominal Pain HPI - General Source: patient, RN notes reviewed Mode of arrival: ambulatory Limitations: no limitations <Tawnya Hackett - Last Filed: 07/01/24 02:44> <Damián Pack - Last Filed: 07/01/24 02:52> - General Chief Complaint: Abdominal Pain Stated Complaint: chills abd pain Time Seen by Provider: 06/30/24 23:32 - History of Present Illness Initial Comments: 33-year-old female presenting for right lower quadrant abdominal pain x 3 days. Describes a sharp, intermittent pain that last for approximately 3 hours at a time. Denies any alleviating or exacerbating factors. States she has had this pain in the past which was attributed to a kidney infection. Denies any urinary symptoms, fever, nausea, vomiting, vaginal discharge. Denies any previous abdominal surgeries. States she has a Nexplanon which causes her periods to be irregular. Endorses history of ovarian cysts. (Tawnya Hackett) - Related Data Home Medications Medication Instructions Recorded Confirmed Acetaminophen [Tylenol] 325 mg PO Q4H 11/05/16 11/05/16 Albuterol Inhaler [Ventolin Hfa 1 - 2 puff INHALATION Q6HR PRN 11/05/16 11/05/16 Inhaler] Previous Rx's Medication Instructions Recorded Acetaminophen-Codeine 300-30mg 2 each PO Q4HR PRN #30 tab 11/07/16 [Tylenol w/codeine #3] Ibuprofen [Motrin] 600 mg PO Q6HR PRN #30 tab 11/07/16 Erythromycin Ophth Oint [Romycin 1 applic LEFT EYE QID 5 Days #1 01/25/20 Ophth Oint] tube Ibuprofen [Motrin] 600 mg PO Q8HR PRN #20 tab 06/30/20 Penicillin V Potassium [Pen Vee K] 500 mg PO QID #40 tablet 06/30/20 Allergies Allergy/AdvReac Type Severity Reaction Status Date / Time sulfamethoxazole Allergy Itching Verified 06/30/24 23:18 [From Bactrim] trimethoprim [From Bactrim] Allergy Itching Verified 06/30/24 23:18 hydrocodone bitartrate AdvReac Unknown Verified 06/30/24 23:18 [From Vicodin] Review of Systems ROS Other: All systems not noted in ROS Statement are negative. <Tawnya Hackett - Last Filed: 07/01/24 02:44> ROS Other: All systems not noted in ROS Statement are negative. <Damián Pack - Last Filed: 07/01/24 02:52> ROS Statement: Those systems with pertinent positive or pertinent negative responses have been documented in the HPI. Past Medical History Past Medical History: Asthma Additional Past Medical History / Comment(s): 3 previous vaginal deliveries. History of Any Multi-Drug Resistant Organisms: None Reported Past Surgical History: No Surgical Hx Reported Past Anesthesia/Blood Transfusion Reactions: No Reported Reaction Past Psychological History: ADD/ADHD, Depression, PTSD Smoking Status: Former smoker Past Alcohol Use History: None Reported Past Drug Use History: None Reported - Past Family History Mother Family Medical History: Asthma, Cancer Additional Family Medical History / Comment(s): cervical cancer <Tawnya Hackett - Last Filed: 07/01/24 02:44> General Exam Limitations: no limitations General appearance: alert, in no apparent distress Head exam: Present: atraumatic, normocephalic, normal inspection GI/Abdominal exam: Present: soft, normal bowel sounds. Absent: distended, tend erness, guarding, rebound, rigid Neurological exam: Present: alert, oriented X3 Psychiatric exam: Present: normal affect, normal mood Skin exam: Present: warm, dry, intact, normal color. Absent: rash <Tawnya Hackett - Last Filed: 07/01/24 02:44> Course Vital Signs 06/30/24 23:14 Temperature 97.9 F Pulse Rate 75 Respiratory 18 Rate Blood Pressure 114/77 O2 Sat by Pulse 97 Oximetry Medical Decision Making - Lab Data Result diagrams: 06/30/24 23:40 06/30/24 23:40 <Tawnya Hackett - Last Filed: 07/01/24 02:44> - Lab Data Result diagrams: 06/30/24 23:40 06/30/24 23:40 <Damián Pack - Last Filed: 07/01/24 02:52> - Medical Decision Making Was pt. sent in by a medical professional or institution (, PA, PORTFOLIO ACCOUNTANT, urgent care, hospital, or penitentiary...) When possible be specific @ -No Did you speak to anyone other than the patient for history (EMS, parent, family, police, friend...)? What history was obtained from this source @ -No Did you review nursing and triage notes (agree or disagree)? Why? @ -I reviewed and agree with nursing and triage notes Were old charts reviewed (outside hosp., previous admission, EMS record, old EKG, old radiological studies, urgent care reports/EKG's, penitentiary records)? Report findings @ -No old charts were reviewed Differential Diagnosis (chest pain, altered mental status, abdominal pain women, abdominal pain men, vaginal bleeding, weakness, fever, dyspnea, syncope, headach e, dizziness, GI bleed, back pain, seizure, CVA, palpatations, mental health, musculoskeletal)? @ -Differential Abdominal Pain Women: Appendicitis, Cholecystitis, diverticulosis, ischemic bowel, pancreatitis, hepatitis, UTI, gastroenteritis, AAA, incarcerated hernia, bowel obstruction, constipation, inflammatory bowel, hepatitis, peptic ulcer disease, splenic infarction, perforated viscus, vulvitis, ovarian torsion, PID, kidney stone, placenta abruption, this is not meant to be an all-inclusive list EKG interpreted by me (3pts min.). @ -None X-rays interpreted by me (1pt min.). @ -None done CT interpreted by me (1pt min.). @ -None done U/S interpreted by me (1pt. min.). @ -Ultrasound pelvis pending at time of signout What testing was considered but not performed or refused? (CT, X-rays, U/S, labs)? Why? @ -None What meds were considered but not given or refused? Why? @ -None Did you discuss the management of the patient with other professionals (professionals i.e. , PA, PORTFOLIO ACCOUNTANT, lab, RT, psych nurse, social work nurse, environmental service aide, teacher, plant protection officer, onsite case manager)? Give summary @ -No Was smoking cessation discussed for >3mins.? @ -No Was critical care preformed (if so, how long)? @ -No Were there social determinants of health that impacted care today? How? (Homelessness, low income, unemployed, alcoholism, drug addiction, transportation, low edu. Level, literacy, decrease access to med. care, alf, rehab)? @ -No Was there de-escalation of care discussed even if they declined (Discuss DNR or withdrawal of care, Hospice)? DNR status @ -No What co-morbidities impacted this encounter? (DM, HTN, Smoking, COPD, CAD, Cancer, CVA, ARF, Chemo, Hep., AIDS, mental health diagnosis, sleep apnea, morbid obesity)? @ -None Was patient admitted / discharged? Hospital course, mention meds given and route, prescriptions, significant lab abnormalities, going to OR and other pertinent info. @ -33-year-old female presenting for right lower quadrant abdominal pain x 3 days. Vital signs within acceptable limits. Patient is afebrile with no CVA tenderness. Patient is well-appearing, no acute distress. Abdomen soft and nontender. Patient was provided with IV fluids, Zofran, and Toradol. Lab work largely unremarkable. Urinalysis reveals contaminated sample not overly indicative of urinary tract infection. Case signed out to my ED attending Dr. Pack pending ultrasound pelvis and disposition. (Tawnya Hackett) Ultrasound negative for acute pelvic pathology. Patient stable for discharge. (Damián Pack) - Lab Data Lab Results 06/30/24 06/30/24 06/30/24 Range/Units 23:40 23:40 23:40 WBC 5.5 (3.8-10.6) k/uL RBC 5.34 (3.80-5.40) m/uL Hgb 14.2 (11.4-16.0) gm/dL Hct 46.3 H (34.0-46.0) % MCV 86.7 (80.0-100.0) fL MCH 26.6 (25.0-35.0) pg MCHC 30.6 L (31.0-37.0) g/dL RDW 13.6 (11.5-15.5) % Plt Count 157 (150-450) k/uL MPV 8.7 Neutrophils % 67 % Lymphocytes % 18 % Monocytes % 5 % Eosinophils % 8 % Basophils % 1 % Neutrophils # 3.7 (1.3-7.7) k/uL Lymphocytes # 1.0 (1.0-4.8) k/uL Monocytes # 0.3 (0-1.0) k/uL Eosinophils # 0.5 (0-0.7) k/uL Basophils # 0.0 (0-0.2) k/uL Sodium (137-145) mmol/L Potassium (3.5-5.1) mmol/L Chloride (98-107) mmol/L Carbon Dioxide (22-30) mmol/L Anion Gap mmol/L BUN (7-17) mg/dL Creatinine (0.52-1.04) mg/dL Est GFR (CKD-EPI)AfAm (>60 ml/min/1.73 sqM) Est GFR (CKD-EPI)NonAf (>60 ml/min/1.73 sqM) Glucose (74-99) mg/dL Plasma Lactic Acid Memo (0.7-2.0) mmol/L Calcium (8.4-10.2) mg/dL Total Bilirubin (0.2-1.3) mg/dL AST (14-36) U/L ALT (4-34) U/L Alkaline Phosphatase (38-126) U/L Total Protein (6.3-8.2) g/dL Albumin (3.5-5.0) g/dL Lipase (23-300) U/L Urine Color Yellow Urine Appearance Cloudy H (Clear) Urine pH 5.5 (5.0-8.0) Ur Specific [place] 1.018 (1.001-1.035) Urine Protein Negative (Negative) Urine Glucose (UA) Negative (Negative) Urine Ketones Negative (Negative) Urine Blood Moderate H (Negative) Urine Nitrite Negative (Negative) Urine Bilirubin Negative (Negative) Urine Urobilinogen <2.0 (<2.0) mg/dL Ur Leukocyte Esterase Moderate H (Negative) Urine RBC 4 (0-5) /hpf Urine WBC 13 H (0-5) /hpf Ur Squamous Epith Cells 5 H (0-4) /hpf Urine Bacteria Rare H (None) /hpf Hyaline Casts 6 H (0-2) /lpf Urine Mucus Occasional H (None) /hpf Urine HCG, Qual Not Detected (Not Detectd) 06/30/24 06/30/24 Range/Units 23:40 23:40 WBC (3.8-10.6) k/uL RBC (3.80-5.40) m/uL Hgb (11.4-16.0) gm/dL Hct (34.0-46.0) % MCV (80.0-100.0) fL MCH (25.0-35.0) pg MCHC (31.0-37.0) g/dL RDW (11.5-15.5) % Plt Count (150-450) k/uL MPV Neutrophils % % Lymphocytes % % Monocytes % % Eosinophils % % Basophils % % Neutrophils # (1.3-7.7) k/uL Lymphocytes # (1.0-4.8) k/uL Monocytes # (0-1.0) k/uL Eosinophils # (0-0.7) k/uL Basophils # (0-0.2) k/uL Sodium 137 (137-145) mmol/L Potassium 4.1 (3.5-5.1) mmol/L Chloride 102 (98-107) mmol/L Carbon Dioxide 25 (22-30) mmol/L Anion Gap 10 mmol/L BUN 7 (7-17) mg/dL Creatinine 0.83 (0.52-1.04) mg/dL Est GFR (CKD-EPI)AfAm >90 (>60 ml/min/1.73 sqM) Est GFR (CKD-EPI)NonAf >90 (>60 ml/min/1.73 sqM) Glucose 95 (74-99) mg/dL Plasma Lactic Acid Memo 1.1 (0.7-2.0) mmol/L Calcium 9.3 (8.4-10.2) mg/dL Total Bilirubin 0.9 (0.2-1.3) mg/dL AST 19 (14-36) U/L ALT 13 (4-34) U/L Alkaline Phosphatase 56 (38-126) U/L Total Protein 7.9 (6.3-8.2) g/dL Albumin 4.8 (3.5-5.0) g/dL Lipase 233 (23-300) U/L Urine Color Urine Appearance (Clear) Urine pH (5.0-8.0) Ur Specific [place] (1.001-1.035) Urine Protein (Negative) Urine Glucose (UA) (Negative) Urine Ketones (Negative) Urine Blood (Negative) Urine Nitrite (Negative) Urine Bilirubin (Negative) Urine Urobilinogen (<2.0) mg/dL Ur Leukocyte Esterase (Negative) Urine RBC (0-5) /hpf Urine WBC (0-5) /hpf Ur Squamous Epith Cells (0-4) /hpf Urine Bacteria (None) /hpf Hyaline Casts (0-2) /lpf Urine Mucus (None) /hpf Urine HCG, Qual (Not Detectd) Disposition <Tawnya Hackett - Last Filed: 07/01/24 02:44> Is patient prescribed a controlled substance at d/c from ED?: No Time of Disposition: 02:52 <Damián Pack - Last Filed: 07/01/24 02:52> Clinical Impression: Abdominal pain Disposition: HOME SELF-CARE Condition: Good Instructions (If sedation given, give patient instructions): Abdominal Pain (ED) Referrals: Brianne Ontiveros MD [Primary Care Provider] - 1-2 days
[2024-06-30] MEDS: SODIUM CHLORIDE 0.9% 1,000 ML IV STA (23:42)
[2024-06-30] MEDS: KETOROLAC 15 MG/ML 1 ML VIAL IVP STA (23:42)
[2024-07-01 00:05] LABS: Basophils % (A) 1 %; Eosinophils # (A) 0.5 k/uL (0-0.7); Eosinophils % (A) 8 %; HCT 46.3 % (34.0-46.0); HGB 14.2 gm/dL (11.4-16.0); Lymphocytes % (A) 18 %; MCH 26.6 pg (25.0-35.0); MCHC 30.6 g/dL (31.0-37.0); MCV 86.7 fL (80.0-100.0); Mean Platelet Volume 8.7; Monocytes # (A) 0.3 k/uL (0-1.0); Monocytes % (A) 5 %; Neutrophils # (A) 3.7 k/uL (1.3-7.7); Neutrophils % (A) 67 %; Platelet Count 157 k/uL (150-450); RBC 5.34 m/uL (3.80-5.40); RDW 13.6 % (11.5-15.5); WBC 5.5 k/uL (3.8-10.6)
[2024-07-01 00:09] LABS: Appearance,Urine Cloudy (Clear); Bacteria,Urine Rare /hpf; Bilirubin,Urine Negative (Negative); Blood,Urine Moderate (Negative); Color,Urine Yellow; Glucose,Urine (UA) Negative (Negative); Hyaline Casts,Urine 6 /lpf (0-2); Ketones,Urine Negative (Negative); Leukocyte Esterase,Urine Moderate (Negative); Mucus,Urine Occasional /hpf; Nitrite,Urine Negative (Negative); PH, Urine 5.5 (5.0-8.0); Protein,Urine Negative (Negative); RBC,Urine 4 /hpf (0-5); Specific Gravity,Urine 1.018 (1.001-1.035); Squamous Epithelial Cell,Urine 5 /hpf (0-4); Urobilinogen,Urine <2.0 mg/dL (<2.0); WBC,Urine 13 /hpf (0-5)
[2024-07-01 00:34] LABS: ALT 13 U/L (4-34); AST 19 U/L (14-36); African American GFR (CKD) >90 (>60 ml/min/1.73 sqM); Albumin 4.8 g/dL (3.5-5.0); Alkaline Phosphatase 56 U/L (38-126); Anion Gap 10 mmol/L; Blood Urea Nitrogen 7 mg/dL (7-17); Calcium 9.3 mg/dL (8.4-10.2); Carbon Dioxide 25 mmol/L (22-30); Chloride 102 mmol/L (98-107); Glucose 95 mg/dL (74-99); Lipase 233 U/L (23-300); Non-African American GFR(CKD) >90 (>60 ml/min/1.73 sqM); Potassium 4.1 mmol/L (3.5-5.1); Sodium 137 mmol/L (137-145); Total Bilirubin 0.9 mg/dL (0.2-1.3); Total Protein 7.9 g/dL (6.3-8.2)
[2024-07-01] MEDS: KETOROLAC 15 MG/ML 1 ML VIAL IVP STA (02:23)
--- NOTE | 2024-07-01 02:50 | US ---
Exam: US PELVIS CLINICAL INDICATION: Female, 33 years old with history of RLQ abd pain; RLQ pain that radiates to the LLQ x 3 days. TECHNIQUE: Transabdominal (TA). Transabdominal grayscale sonographic images of the pelvis were acquired. Doppler imaging: Color Doppler Images were obtained. Spectral doppler images were obtained. 53 images Comparison: Pelvic ultrasound from a 08/20/2014 FINDINGS: Date of LMP: Unknown due to control. Uterus: 7.7 x 4.5 x 3.0 cm, unremarkable Endometrial Stripe: 0.4 cm, unremarkable Right Ovary: 3.0 x 1.9 x 1.7 cm, unremarkable Left Ovary: 2.5 x 1.7 x 1.9 cm, unremarkable Posterior cul-de-sac: no free fluid Impression: No abnormality
[2024-07-01 03:01] VITALS: BP 118/84; PULSE 69; RESP 16
== END 2024-07-01 03:00 | disposition home or self-care (01) ==
LOC: EC 23:12
DX: R10.31 Right lower quadrant pain (principal); Z88.2 Allergy status to sulfonamides; Z88.1 Allergy status to other antibiotic agents; Z88.5 Allergy status to narcotic agent; Z87.891 Personal history of nicotine dependence
CPT/HCPCS: 36415; 80053; 83605; 83690; 85025; 81025; 99284; 96374; 96376; 96361; J1885; 76856; 81001; 87086; 93975

== ENCOUNTER 2024-10-07 10:58 | Day surgery (SDC) | payer OTHER ==
[2024-10-03 14:40] VITALS: BMI 17.7
[~2024-10-07 10:58] MED LIST: fentaNYL (PF) 50 MCG/ML 2 ML AMP IV PRN
[2024-10-07] MEDS: IV FLUID CONTINUATION 1,000 ML IV ONE (11:43)
[2024-10-07] MEDS: ONDANSETRON 4 MG/2 ML VIAL IVP ONE (12:20)
[2024-10-07] MEDS: DEXAMETHASONE SOD PHOSPHATE 4 MG/ML 1 ML VIAL IV ONE (12:20)
[2024-10-07] MEDS: LACTATED RINGERS 1,000 ML IV SCH (12:20)
[2024-10-07] MEDS: MIDAZOLAM 2 MG/2 ML VIAL IV ONE (12:32)
[2024-10-07] MEDS: fentaNYL (PF) 50 MCG/ML 2 ML AMP IVP STA (12:32)
--- NOTE | 2024-10-07 13:15 | P.ANPRN ---
Procedure Note - Anesthesia - Nerve Block Performed Left Axillary Single Time Out Performed: Yes (1232) Date of Procedure: 10/07/24 Procedure Start Time: 12:33 Procedure Stop Time: 12:37 Location of Patient: PreOp Indication: Acute Post-Operative Pain, Requested by Surgeon Specifically requested for management of pain by DrJewel: Carlie Godwin Sedation Type: Sedate with meaningful contact maintained Preparation: Sterile Prep, Sterile Dressing Position: Supine (arm over) Catheter: None Needle Types: Pajunk Needle Gauge: 21 Ultrasound used to visualize needle placement: Yes Ultrasound used to observe medication spread: Yes Injectate: 0.5% Ropivacaine (see comment for volume) (20cc +20cc nacl pf for+decadron 4mg. 4x10cc aliquots at each nerve ulnar, medial, radial and mskcut) Blood Aspirated: No Pain Paresthesia on Injection Noted: No Resistance on Injection: Normal Image Stored and Saved: Yes Events: Uneventful and Well Tolerated
[2024-10-07] MEDS ORDERED: DEXAMETHASONE SOD PHOSPHATE 4 MG/ML 1 ML VIAL ONE (13:30)
[2024-10-07] MEDS ORDERED: PROPOFOL 10 MG/ML 20 ML VIAL IV ONE (13:30)
[2024-10-07] MEDS ORDERED: SODIUM CHLORIDE 0.9% (PF) 10 ML VIAL ONE (13:30)
[2024-10-07] MEDS ORDERED: ROPIVACAINE 5 MG/ML 30 ML VIAL ONE (13:30)
[2024-10-07] MEDS ORDERED: LIDOCAINE 1% INJ 10MG/ML (20 ML MDV) ONE (13:30)
[2024-10-07] MEDS ORDERED: GLYCOPYRROLATE 0.2 MG/ML 2 ML VIAL ONE (13:30)
[2024-10-07] MEDS ORDERED: KETOROLAC 15 MG/ML 1 ML VIAL ONE (13:30)
[2024-10-07] MEDS: LACTATED RINGERS 1,000 ML IV ONE (13:53)
[2024-10-07 15:26] VITALS: TEMP 97.6
[2024-10-07 16:40] VITALS: RESP 14
[2024-10-07 17:09] VITALS: BP 100/64; PULSE 87
--- NOTE | 2024-10-07 21:44 | P.OP ---
Date of Procedure: 10/07/24 Preoperative Diagnosis: Left distal radius malunion Postoperative Diagnosis: same Procedure(s) Performed: Left distal radius osteotomy, brachioradialis tendon lengthening Implants: [employer] distal radius 2 hole narrow plate Anesthesia: regional Surgeon: Carlie Godwin Wire Straightener #1: Xochilt Barboza Estimated Blood Loss (ml): 20 Condition: stable Disposition: PACU Indications for Procedure: The patient had a distal radius fracture a year ago what went on to malunion. Despite therapy, she continues to have pain mostly on the ulnar side of the wrist. We have decided to proceed with a distal radius corrective osteotomy. Risks and benefits at the procedure as well as the expected rehab was explained and the patient wishes to proceed. Description of Procedure: The patient, operative extremity, and procedure were identified in the preop holding area. After informed consent was obtained, the anesthesia team performed a regional block. The patient was then brought back to the operating room where the extremity was prepped and draped in normal sterile fashion with a tourniquet on the patients brachium. A formal timeout was performed and the tourniquet was inflated to 250mmHg. A longitudinal incision was made over the volar radial aspect of the wrist. Dissection was taken down to the flexor carpi radialis tendon. This was mobilized ulnarly and the underlying forearm fascia was incised. The branch of the radial artery was protected while the flexor tendons and muscles were swept aside to access the pronator quadratus muscle. This was released sharply off of the radius to reveal the malunion site. The brachioradialis tendon was then identified proximal to its insertion onto the radial styloid. This was released with a stepped cut to neutralize its deforming force and aid in the correction. Care was taken to protect the 1st compartment extensor tendons. K wires were inserted just proximal to the osteotomy site to guide the angle of the cut. A sagittal saw was then used to cut the distal radius. The two ends were cleaned. The proximal portion was grasped with a lobster claw and pronated to reveal the dorsal periosteum. This was cleared from either side of the cut to allow for mobilization of the distal piece. The distal piece was then manuevered to achieve neutral tilt. The volar plate was then provisionally placed and fixed with K wires. The reduction and plate placement was confirmed on fluoroscopy. Adjustments were made as necessary. A compression screw was then inserted distally to pull the plate to the bone. The oblong hole of the proximal plate was then filled with a nonlocking screw. The distal aspect of the plate was then filled with smooth locking pegs of appropriate length. These spanned at least 75 percent of the volar dorsal width without protruding distally. The remaining proximal screw holes were then filled. Final fluoroscopic imaging showed good fracture reduction, hardware placement, and confirmed the removal of all drill guides. The wrist was then taken through a full arc of motion and noted to be stable without any catching. The DRUJ was also stable. The wrist joint was ulnar neutral. The brachioradialis tendon was then repaired in a lengthened fashion to restore function of the tendon without adding undue stress to the correction. Tourniquet was then let down and hemostasis achieved. The remainder of the wound was closed in a layered fashion with 4.0 monocryl and skin glue. Wound was dressed with adaptic, gauze, cast padding, and a volar splint. Patient was aroused by the anesthesia team and brought back to PACU in stable co ndition. Skilled assistance was necessary to protect neurovascular structures during the exposure and to hold the reduction while the fixation was secured.
== END 2024-10-07 17:15 | disposition home or self-care (01) ==
LOC: OR 10:58
PROVIDERS: ATTEND Orthopaedic Surgery Hand Surgery
DX: S52.572P Other intraarticular fracture of lower end of left radius, subsequent encounter for closed fracture with malunion (principal); G89.18 Other acute postprocedural pain
CPT/HCPCS: 81025; 64417; 25350; 25280; C1713; J2250; J1100; J2405; J0690; J2003; J3010; J2795; J1885; J2704; J1596